=== PATIENT | female | born 1975 | race Caucasian/White ===

== ENCOUNTER 2023-11-27 14:38 | Outpatient (REF) | payer MEDICAID, SELFPAY ==
[2023-12-03 20:13] LABS: C. trachomatis RNA TMA NOT DETECTED (NOT DETECTED); N. gonorrhoeae RNA TMA NOT DETECTED (NOT DETECTED)
[2023-12-04 14:23] LABS: Trichomonas (NAAT) NOT DETECTED (NOT DETECTED)
[2023-12-05 03:29] LABS: HPV 16 RNA NOT DETECTED (NOT DETECTED); HPV mRNA E6/E7 rflx Detected (Not Detected)
== END 2023-11-27 14:39 | disposition home or self-care (01) ==
LOC: HO.CHCLNP 14:38
PROVIDERS: Visit Provider Nurse Practitioner
DX: Z12.4 Encounter for screening for malignant neoplasm of cervix (principal); Z11.51 Encounter for screening for human papillomavirus (HPV); Z11.3 Encounter for screening for infections with a predominantly sexual mode of transmission
CPT/HCPCS: 36415; 87491; 87591; 87624; 87625; 87661; 88142

== ENCOUNTER 2023-12-03 11:08 | Outpatient (REF) | payer MEDICAID, SELFPAY ==
[2023-12-03 14:57] LABS: Anion Gap 11 (12-20); Blood Urea Nitrogen 13 mg/dL (9-16); Carbon Dioxide 26 mmol/L (22-29); Chloride 107 mmol/L (96-108); Cholesterol 111 mg/dL (<200); Estimated Glomerular Filt Rate > 60; Glucose Random 164 mg/dL (60-115); HDL Cholesterol 39 mg/dL (>40); LDL Cholesterol Calculated 58 mg/dL (<100); Sodium 140 mmol/L (135-145); Triglycerides 73 mg/dL (<150)
[2023-12-03 16:04] LABS: Creatinine Urine 96.71 mg/dL; Microalbum/Creatinine Ratio Ur 6.2 ug/mg cr (<30)
== END 2023-12-03 11:09 | disposition home or self-care (01) ==
LOC: HO.CHCLDS 11:08
PROVIDERS: Visit Provider Registered Nurse
DX: E11.9 Type 2 diabetes mellitus without complications (principal)
CPT/HCPCS: 36415; 80048; 80061; 82043; 82570

== ENCOUNTER 2023-12-14 18:54 | Emergency (ER) | payer MEDICAID, SELFPAY ==
--- NOTE | 2023-12-14 19:27 | ED_ITS ---
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 slightly elevated blood pressure 130/90 stressed out looking for answers and treatment Related Data Allergies Allergy/AdvReac Type Severity Reaction Status Date / Time iodine [Iodine] Allergy Unknown ANAPHYLAXIS Unverified 07/08/20 17:54 morphine [MORPHINE] Allergy Unknown HIVES Unverified 07/08/20 17:54 Shellfish Allergy Unknown ANAPHYLAXIS Uncoded 07/08/20 17:54 Review of Systems 2 Review of Systems: Yes all other systems are reviewed and are negative [facility] Social History Social History Advance Directives: No Advance Directives Information Provided: No Physical Exam ED Vital Signs: Vital Signs - 24 hr 12/14/23 19:28 12/14/23 22:45 Temperature 98.3 F 97.1 F Pulse Rate 72 74 Respiratory Rate 16 18 Blood Pressure 135/85 131/90 H Pulse Oximetry 98 98 Oxygen Delivery Method Room Air Room Air BMI result Body Mass Index 38.9 Appearance: Alert. Oriented X3. No acute distress. anxious Eyes: PERRLA, No Nystagmus ENT: Pharynx normal. Oral Mucosa moist Neck: Normal inspection. Neck supple. CVS: Normal heart rate and rhythm. Pulses normal. Respiratory: No respiratory distress. Equal air entry bilateral, no wheezing/rales/rhonchi Abdomen: Soft and nontender. Bowel sounds are present, no mass palpable, no CVA tenderness Skin: Skin warm and dry. Normal skin color. Normal skin turgor. Extremities: No lower extremity edema. No calf tenderness Neuro: Oriented X 3. Course Course Course Narrative: RME:?47 yo female here for eval of dizzy spells, headache, nausea, & 1 episode of vomiting. dizziness worse w/ head movements. described as feeling light headed, as if she is going to pass out. headache located temporally with associated spots in vision that have resolved. took Motrin at home for headache. had appointment w/ PCP today for this but was 5 mins late d/t falling asleep and they would not see her. no recent travel/ long car rides. perrla. exam nonfocal. negative romberg. normotensive in triage labs, viral swabs ordered Full HPI, ROS and PE to be performed by the primary ED provider. 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 12/14/23 19:46 12/14/23 19:46 Labs: Lab Results 12/14/23 Range/Units 19:46 WBC 9.8 (4.8-10.8) X10*3/uL RBC 4.46 (4.20-5.50) X10*6/uL Hgb 11.9 L (12.0-16.0) g/dl Hct 38.5 (37.0-47.0) % MCV 86.3 (80.0-98.0) fL MCH 26.7 L (27.0-33.0) pg MCHC 30.9 L (31.0-35.0) g/dl RDW 15.1 (11.0-16.0) % Plt Count 357 (160-400) X10*3/uL MPV 11.1 (9.4-12.3) fL Immature Gran % (Auto) 0.3 (0.0-0.4) % Neut % (Auto) 62.0 (45-73) % Lymph % (Auto) 29.9 (20-40) % [place] % (Auto) 5.6 (2-11) % Eos % (Auto) 1.6 (0-4) % Baso % (Auto) 0.6 (0-2) % Lymph # (Auto) 2.9 (1.2-4.9) X10*3/uL [place] # (Auto) 0.6 (0.1-1.2) X10*3/uL Eos # (Auto) 0.2 (0.0-0.4) X10*3/uL Baso # (Auto) 0.1 (0.0-0.2) X10*3/uL Abs Immat Gran (auto) 0.03 (0.00-0.03) X10*3/uL Absolute Neuts (auto) 6.0 (2.0-8.3) x10*3/uL Absolute Nucleated RBC 0.000 (0.0-0.012) X10*3/uL Nucleated RBC % (auto) 0.0 (0.0-0.2) /100WBC PT 12.3 (11.1-13.3) SEC INR 1.0 (0.9-1.1) Sodium 143 (135-145) mmol/L Potassium 4.3 (3.3-5.1) mmol/L Chloride 106 (96-108) mmol/L Carbon Dioxide 27 (22-29) mmol/L Anion Gap 14 (12-20) BUN 22 H (9-16) mg/dL Creatinine 0.81 (0.5-1.4) mg/dL Estim Creat Clear Calc 96.6 Estimated GFR > 60 Random Glucose 211 H (60-115) mg/dL Calcium 9.4 (8.4-10.2) mg/dL Magnesium 2.3 (1.6-2.6) mg/dL Total Bilirubin 0.5 (0.0-1.0) mg/dL AST 25 (5-31) U/L ALT 32 H (0-31) U/L Alkaline Phosphatase 164 H (39-117) U/L Total Protein 7.5 (6.5-8.0) g/dL Albumin 4.1 (3.5-5.0) g/dL Influenza Type A (PCR) NEGATIVE (Negative) Influenza Type B (PCR) NEGATIVE (Negative) RSV RNA Qual (PCR) NEGATIVE (Negative) SARS-CoV-2 RNA (RT-PCR) NEGATIVE (Negative) Discharge Plan Discharge Clinical Impression: HPV in female Patient Disposition: Home, Self-Care Instructions: Cervical Cone Biopsy (DC) Additional Instructions: Follow-up with gynecology for further evaluation and management Referrals: Adeel Rodriguez MD [Physician] - 1 week
[2023-12-14 19:28] VITALS: BP 135/85; PULSE 72; RESP 16; TEMP 36.8; O2SAT 98; BMI 38.9
--- NOTE | 2023-12-14 19:48 | MHC.EDTECH ---
Patient brought into triage area,labs,and a Sars/flu/covid,obtained and sent to lab
[2023-12-14 19:52] LABS: MANUAL DIFF FLAG NO
[2023-12-14 19:54] LABS: Basophils Absolute Auto 0.1 X10*3/uL (0.0-0.2); Basophils Percent Auto 0.6 % (0-2); Eosinophils Absolute Auto 0.2 X10*3/uL (0.0-0.4); Eosinophils Percent Auto 1.6 % (0-4); Hematocrit 38.5 % (37.0-47.0); Hemoglobin 11.9 g/dl (12.0-16.0); Imm Gran Abs Auto 0.03 X10*3/uL (0.00-0.03); Imm Gran Pct Auto 0.3 % (0.0-0.4); Lymphocytes Absolute Auto 2.9 X10*3/uL (1.2-4.9); Lymphocytes Percent Auto 29.9 % (20-40); Mean Corpuscular HGB Conc 30.9 g/dl (31.0-35.0); Mean Corpuscular Hemoglobin 26.7 pg (27.0-33.0); Mean Corpuscular Volume 86.3 fL (80.0-98.0); Mean Platelet Volume 11.1 fL (9.4-12.3); Monocytes Absolute Auto 0.6 X10*3/uL (0.1-1.2); Monocytes Percent Auto 5.6 % (2-11); Platelet Count 357 X10*3/uL (160-400); Red Blood Count 4.46 X10*6/uL (4.20-5.50); Red Cell Distribution Width 15.1 % (11.0-16.0); White Blood Count 9.8 X10*3/uL (4.8-10.8)
[2023-12-14 19:59] LABS: Prothrombin Time 12.3 SEC (11.1-13.3)
[2023-12-14 20:11] LABS: Alanine Aminotransferase 32 U/L (0-31); Albumin Level 4.1 g/dL (3.5-5.0); Alkaline Phosphatase 164 U/L (39-117); Anion Gap 14 (12-20); Aspartate Amino Transferase 25 U/L (5-31); Bilirubin Total 0.5 mg/dL (0.0-1.0); Blood Urea Nitrogen 22 mg/dL (9-16); Calcium 9.4 mg/dL (8.4-10.2); Carbon Dioxide 27 mmol/L (22-29); Chloride 106 mmol/L (96-108); Creatinine Clr Calc Pharmacy 96.6; Estimated Glomerular Filt Rate > 60; Glucose Random 211 mg/dL (60-115); Magnesium 2.3 mg/dL (1.6-2.6); Potassium 4.3 mmol/L (3.3-5.1); Sodium 143 mmol/L (135-145); Total Protein 7.5 g/dL (6.5-8.0)
[2023-12-14 20:30] LABS: Influenza A PCR NEGATIVE (Negative); Influenza B PCR NEGATIVE (Negative); Resp Syncy Virus RNA Qual PCR NEGATIVE (Negative); SARS COV2 PCR INHOUSE NEGATIVE (Negative)
[2023-12-14 22:45] VITALS: BP 131/90; PULSE 74; RESP 18; TEMP 36.2; O2SAT 98
[2023-12-15 00:43] VITALS: PULSE 60; RESP 18; O2SAT 99
[2023-12-15 01:03] VITALS: BP 138/93
== END 2023-12-15 01:10 | disposition home or self-care (01) ==
PROVIDERS: Physician Assistant Medical; Emergency Provider Internal Medicine
DX: A63.0 Anogenital (venereal) warts (principal); R42 Dizziness and giddiness; R51.9 Headache, unspecified; R11.2 Nausea with vomiting, unspecified; Z11.52 Encounter for screening for COVID-19; Z20.828 Contact with and (suspected) exposure to other viral communicable diseases
CPT/HCPCS: 0241U; 36415; 80053; 83735; 85025; 85610; 99283

== ENCOUNTER 2023-12-20 14:15 | Outpatient (REF) | payer MEDICAID, SELFPAY | END 2023-12-20 14:16 | disposition home or self-care (01) | LOC: HO.LNP 14:15 | PROVIDERS: PCP Registered Nurse; Visit Provider Obstetrics & Gynecology | DX: R87.610 Atypical squamous cells of undetermined significance on cytologic smear of cervix (ASC-US) (principal); R87.810 Cervical high risk human papillomavirus (HPV) DNA test positive | CPT/HCPCS: 57454; 88305; 88342; 88360 ==

== ENCOUNTER 2023-12-20 14:15 | Outpatient (AMB) | payer MEDICAID, SELFPAY ==
[2023-12-20 14:29] VITALS: BP 130/78; BMI 38.7
--- NOTE | 2023-12-20 14:29 | MHC.OFFVIS ---
Intake Vital Signs 12/20/23 14:29 Height 5 ft 3 in Weight 218 lb 4.122 oz BMI 38.7 BP 130/78 Intake Visit Reasons: ER follow Up/ colpo Communications Intern Required: No Information Interpreted: non-clinical & clinical Accompanied by: Self / Same As Patient Allergies iodine [Iodine] Allergy (Unknown, Unverified 12/20/23 14:34) ANAPHYLAXIS morphine [MORPHINE] Allergy (Unknown, Unverified 12/20/23 14:34) HIVES Shellfish Allergy (Unknown, Uncoded 12/20/23 14:34) ANAPHYLAXIS Is last menstrual period known: Yes HPI HPI Comments History of Present Illness Details Presenting for colposcopy Pap smear done in 12/15 showed ascus/HPV E6 E7 positive, HPV 16/18/45 negative PFSH Medical History Diabetes HTN (hypertension) Surgical History Hx of tubal ligation Hx of cholecystectomy Hx of hernia repair Hx of section Family History Father HTN (hypertension) Kidney failure Diabetes Mother HTN (hypertension) Brother HTN (hypertension) Social History Household Members: Children Housing: Apartment Alcohol intake: former Patient Tobacco Use Status: Never used Tobacco Current occupational status: unemployed Sexually active: No Sexual orientation: Straight/Heterosexual Gender identity: Female Female Reproductive History Menstrual control method: permanent sterilization Date of last pap smear: 11/27/23 History of abnormal pap smear: Yes (Ascus ,HPV +) Review of Systems Const All systems reviewed & are unremarkable except as noted in HPI and below Physical Exam Vital Signs: Last Vital Signs BP 130/78 12/20/23 14:29 BMI result Body Mass Index 38.7 General: Yes no CVA tenderness External Female Exam: normal external appearance and normal appearance of the urethra Speculum Exam - Vagina: normal appearance of the vagina, normal palpation, no lesions and no masses Speculum Exam - Cervix: normal appearance of the cervix, normal palpation, no lesions, no masses and nontender Bimanual exam- vagina & uterus: normal bimanual exam, normal palpation, uterine size normal, normal palpation, uterine shape normal, No Cervical tenderness present and non-tender Bimanual Exam- Adnexa, other: normal adnexae Back/Spine/Pelvis Back: no CVA tenderness Office Procedures Colposcopy Before the procedure was started discussed with the patient the procedure, alternatives & all the risks associated with the procedure (bleeding, infection, injury to vagina, bladder, vessels, possible need for transfusion with all its risks) then patient signed the consent UPT done in the office & negative Pap smear = ascus/HPV E6/E7 positive HPV 16/18/40 5- Speculum inserted, acetic acid used Colposcopy done Transformation zone seen, acetowhite lesions identified at 6+12 o?clock, cervical biopsies taken from 6+1 o?clock, ECC done afterwards. Vaginoscopy of the upper vagina showed no evidence of any aceto-white lesions Monsel solution used for hemostasis. The patient tolerated well . At the end the patient was instructed to call if temp>100.4, abdominal pain, n/v, bleeding; The patient was given the following instructions: nothing per vagina, no intercourse or bath tub use. All questions answered the patient verbalized understanding. Instructed the patient to make an appointment in 2 weeks for follow-up This note was generated with a voice recognition program. Some errors may have been overlooked during the review of this note. Sometimes these errors may affect the content or meaning of a given sentence. 25028-[id number] of cervix including upper vagina with biopsy and ECC Procedure code (CPT) selection complete Assessment & Plan Assessment & Plan (1) ASCUS with positive high risk HPV cervical: Code(s): R87.610 - Atypical squamous cells of undetermined significance on cytologic smear of cervix (ASC-US); R87.810 - Cervical high risk human papillomavirus (HPV) DNA test positive Plan: Discussed with the patient the result of her abnormal pap, its significance, risk of progression, persistence, and regression. the false positive/negative rate of a Pap smear as a screening test in detecting cervical cancer and the indication for a diagnostic test -colposcopy, biopsy, endocervical curettage. The patient verbalized understanding and agreed with the plan, all questions answered. Orders: Orders AMB Colposcopy Today R87.610 - Atypical squamous cells of undetermined significance on cytologic smear of cervix (ASC-US), R87.810 - Cervical high risk human papillomavirus (HPV) DNA test positive Coding Level of Care Code Procedure Only Diagnoses ASCUS with positive high risk HPV cervical R87.610; R87.810 CPT Codes Colposcopy - CPT: 00408-Kkmyboake of cervix including upper vagina with biopsy and ECC ([id number])
== END 2023-12-20 15:26 | disposition home or self-care (01) ==
PROVIDERS: PCP Registered Nurse; Visit Provider Obstetrics & Gynecology
DX: R87.610 Atypical squamous cells of undetermined significance on cytologic smear of cervix (ASC-US) (principal); R87.810 Cervical high risk human papillomavirus (HPV) DNA test positive
CPT/HCPCS: 57454

== ENCOUNTER 2023-12-28 15:48 | Outpatient (REF) | payer MEDICAID, SELFPAY ==
[2023-12-29 00:24] LABS: Vitamin B12 452 pg/mL (200-900)
[2023-12-29 01:37] LABS: Folate 12.7 ng/mL (> or = 4.0)
[2023-12-29 04:12] LABS: HIV AB/AG Nonreactive (Nonreactive); HIV Num 1 0.05 S/CO (0.00-0.99)
[2023-12-31 08:14] LABS: RPR Rapid Plasma Reagin NON-REACTIVE (NON-REACTIVE)
[2023-12-31 13:38] LABS: HCV Log PCR <1.18 NOT DETECTED Log IU/mL (NOT DETECTED); HepC Viral Load <15 NOT DETECTED IU/mL (NOT DETECTED)
== END 2023-12-28 15:49 | disposition home or self-care (01) ==
LOC: HO.CHCLDS 15:48
PROVIDERS: Referring Provider Internal Medicine; Visit Provider Registered Nurse
DX: D64.9 Anemia, unspecified (principal); Z11.3 Encounter for screening for infections with a predominantly sexual mode of transmission
CPT/HCPCS: 36415; 82607; 82746; 86592; 87389; 87522

== ENCOUNTER 2023-12-31 14:08 | Outpatient (AMB) | payer MEDICAID, SELFPAY ==
--- NOTE | 2023-12-31 14:08 | A.OFFVIS_ITS ---
Intake Intake Visit Reasons: Colpo Results Public Works Technician Required: No Information Interpreted: non-clinical & clinical Allergies iodine [Iodine] Allergy (Unknown, Unverified 12/31/23 14:08) ANAPHYLAXIS morphine [MORPHINE] Allergy (Unknown, Unverified 12/31/23 14:08) HIVES Shellfish Allergy (Unknown, Uncoded 12/31/23 14:08) ANAPHYLAXIS HPI HPI Comments History of Present Illness Details The patient is scheduled tele health visit post colpo for follow-up. The patient is doing well with no complaints. The pathology showed the following: A. Endocervix, curettage: Endocervical glandular and squamous mucosa with reactive changes; negative for dysplasia. B. Cervix, 6:00, biopsy: Squamous mucosa with marked inflammation and reactive changes; negative for dysplasia; no endocervical glandular mucosa present. C. Cervix, 12:00, biopsy: Squamous mucosa; negative for dysplasia; no endocervical glandular mucosa present. Comment: The patient's previous Pap test ([id number]) is reviewed and the rare atypical cells in the Pap may represent reactive changes PFSH Medical History Diabetes HTN (hypertension) Surgical History Hx of tubal ligation Hx of cholecystectomy Hx of hernia repair Hx of section Family History Father HTN (hypertension) Kidney failure Diabetes Mother HTN (hypertension) Brother HTN (hypertension) Social History Household Members: Children Housing: Apartment Alcohol intake: former Patient Tobacco Use Status: Never used Tobacco Current occupational status: unemployed Sexual orientation: Straight/Heterosexual Gender identity: Female Review of Systems Const All systems reviewed & are unremarkable except as noted in HPI and below Reports as per HPI and Reports no additional complaints GI Reports no additional complaints Reports no additional complaints Assessment & Plan Assessment & Plan (1) ASCUS with positive high risk HPV cervical: Code(s): R87.610 - Atypical squamous cells of undetermined significance on cytologic smear of cervix (ASC-US); R87.810 - Cervical high risk human papillomavirus (HPV) DNA test positive Plan: Discussed with the patient the pathology results of the colposcopy biopsies & endocervical curettage ( negative). Discussed with the patient the sensitivity specificity, positive and negative predictive value in detecting cervical cancer in addition discussed the regression, persistence and progression rates. Recommended co-testing in 12 months, if cytology and or HPV are abnormal will proceed was colposcopy biopsy and endocervical curettage. Instructions given to the patient to schedule a co test appointment in 1 year. All questions answered the patient verbalized understanding. I spent a total of 20 minutes reviewing the chart, talking to the patient via video and documenting in the medical record. Telehealth Telehealth Location of provider rendering services: practice address Location of patient: address on file Patient Identification confirmed using: Name, : Yes Telehealth method: video Patient verbally consented to treatment: Yes Patient verbally consented to billing insurance company: Yes Patient informed of any privacy concerns related to visit: Yes Coding Level of Care Code Tele Est Pt Level 1 (05690) Diagnoses ASCUS with positive high risk HPV cervical R87.610; R87.810
== END 2023-12-31 16:24 | disposition home or self-care (01) ==
LOC: HO.HWS 14:08
PROVIDERS: PCP Registered Nurse; Visit Provider Obstetrics & Gynecology
DX: R87.610 Atypical squamous cells of undetermined significance on cytologic smear of cervix (ASC-US) (principal); R87.810 Cervical high risk human papillomavirus (HPV) DNA test positive
CPT/HCPCS: 99211

== ENCOUNTER → 2023-12-31 14:08 | Outpatient (BNVA) | payer MEDICAID, SELFPAY | PROVIDERS: PCP Registered Nurse; Visit Provider Obstetrics & Gynecology ==

== ENCOUNTER 2024-03-10 15:19 | Outpatient (REF) | payer MEDICAID, SELFPAY ==
[2024-03-10 18:50] LABS: Influenza A PCR NEGATIVE (Negative); Influenza B PCR NEGATIVE (Negative); Resp Syncy Virus RNA Qual PCR NEGATIVE (Negative); SARS COV2 PCR INHOUSE NEGATIVE (Negative)
== END 2024-03-10 15:20 | disposition home or self-care (01) ==
LOC: HO.CHCLNP 15:19
PROVIDERS: Visit Provider Registered Nurse
DX: B34.9 Viral infection, unspecified (principal)
CPT/HCPCS: 0241U

== ENCOUNTER 2024-05-21 18:03 | Outpatient (REF) | payer MEDICAID, SELFPAY ==
[2024-05-22 04:09] LABS: CT PCR NOT DETECTED (Not Detect.); NG PCR NOT DETECTED (Not Detect.)
== END 2024-05-21 18:04 | disposition home or self-care (01) ==
LOC: HO.HHCLNP 18:03
PROVIDERS: Visit Provider Advanced Practice Midwife
DX: R39.9 Unspecified symptoms and signs involving the genitourinary system (principal); Z11.3 Encounter for screening for infections with a predominantly sexual mode of transmission
CPT/HCPCS: 87086; 87491; 87591

== ENCOUNTER 2024-07-11 11:52 | Outpatient (REF) | payer MEDICAID, SELFPAY ==
[2024-07-12 03:09] LABS: CT PCR NOT DETECTED (Not Detect.); NG PCR NOT DETECTED (Not Detect.)
[2024-07-12 08:48] LABS: Bacterial Vaginosis PCR POSITIVE (Negative); Candida Group PCR NOT DETECTED (Not Detect); Candida glab krusei PCR NOT DETECTED (Not Detect); Trichomonas vaginalis PCR NOT DETECTED (Not Detect)
== END 2024-07-11 11:53 | disposition home or self-care (01) ==
LOC: HO.CHCLNP 11:52
PROVIDERS: Visit Provider Registered Nurse
DX: Z11.3 Encounter for screening for infections with a predominantly sexual mode of transmission (principal)
CPT/HCPCS: 0352U; 87255; 87491; 87591

== ENCOUNTER 2024-10-30 10:22 | Outpatient (REF) | payer MEDICAID, SELFPAY | END 2024-10-30 10:23 | disposition home or self-care (01) | LOC: HO.HHCL 10:22 | PROVIDERS: Visit Provider Advanced Practice Midwife | DX: Z13.89 Encounter for screening for other disorder (principal) ==

== ENCOUNTER 2024-10-30 16:47 | Outpatient (REF) | payer MEDICAID, SELFPAY ==
[2024-10-30 12:47] LABS: Syphilis Screen Nonreactive (Nonreactive)
[2024-10-30 12:50] LABS: HBS Num1 46.33 mIU/mL (0-7.99); HBc Num1 0.17 S/CO (0.00-0.79); HBsAGNum1 0.34 S/CO (0.00-0.99); HIV AB/AG Nonreactive (Nonreactive); Hepatitis B Core Antibody Nonreactive (Nonreactive); Hepatitis B Surface Antigen Negative (Negative); ~Hepatitis B Surface Antibody REACTIVE (Nonreactive)
[2024-10-30 12:58] LABS: HBS Num1 46.76 mIU/mL (0-7.99); HBc Num1 0.17 S/CO (0.00-0.79); HBsAGNum1 0.39 S/CO (0.00-0.99); HIV AB/AG Nonreactive (Nonreactive); HIV Num 1 0.06 S/CO (0.00-0.99); Hepatitis B Core Antibody Nonreactive (Nonreactive); Hepatitis B Surface Antigen Negative (Negative); ~Hepatitis B Surface Antibody REACTIVE (Nonreactive)
[2024-10-31 09:11] LABS: HPV 16,18/45 See PAP report
[2024-11-02 07:59] LABS: RPR Rapid Plasma Reagin NON-REACTIVE (NON-REACTIVE)
[2024-11-02 13:18] LABS: HCV Log PCR <1.18 NOT DETECTED Log IU/mL (NOT DETECTED); HepC Viral Load <15 NOT DETECTED IU/mL (NOT DETECTED)
[2024-11-03 15:19] LABS: C. trachomatis RNA TMA NOT DETECTED (NOT DETECTED); N. gonorrhoeae RNA TMA NOT DETECTED (NOT DETECTED); Trichomonas (NAAT) NOT DETECTED (NOT DETECTED)
== END 2024-10-30 16:48 | disposition home or self-care (01) ==
LOC: HO.HHCLNP 16:47
PROVIDERS: Registered Nurse; Visit Provider Advanced Practice Midwife
DX: Z11.3 Encounter for screening for infections with a predominantly sexual mode of transmission (principal); E11.51 Type 2 diabetes mellitus with diabetic peripheral angiopathy without gangrene; Z12.4 Encounter for screening for malignant neoplasm of cervix; Z87.42 Personal history of other diseases of the female genital tract
CPT/HCPCS: 86592; 86704; 86706; 86780; 87340; 87389; 87491; 87522; 87591; 87626; 87661; 88175

== ENCOUNTER 2024-12-12 11:34 | Outpatient (REF) | payer MEDICAID, SELFPAY ==
--- OUTSIDE RECORDS SUMMARY | 2024-12-12 12:37 | XMS_ITS | Encounter Summary ---
Author Organization [email or web address] Address [address] [facility] [address] [place] [address] Care Team Providers Care Emergency Room Tech Name Role Phone Lisa Ceballos Primary Care Provider [phone] Jose Albarado Unavailable Unavailable Reason for Visit * Reason Comments Med Refill Encounter Details Date Type Department Care Team ([facility] Contact Info) Description 08/20/2023 Refill [facility] [address] [place] [address] Lisa Ceballos FNP [address] [place] [address] Type 2 diabetes mellitus without complication, without long-term current use of insulin ([facility]) Social History Tobacco Use Types Packs/Day Years Used Date Smoking Tobacco: Never Passive Smoke Exposure: Never Smokeless Tobacco: Never Alcohol Use Standard Drinks/Week Comments Never 0 (1 standard drink = 0.6 oz pur e alcohol) Depression Answer Date Recorded Patient Health Questionnaire-9 Score 8 02/19/2023 Housing Stability Answer Date Recorded What is your housing situation today? I do not have housing (Staying with others, in a hotel, in a [place], living outside on the street, on a beach, in a car, or in a park 07/30/[address] you li ve. Do you have problems with any of the following? Pests such as bugs, ants, or mice 07/30/2023 Food Insecurity Answer Date Recorded Within the past 12 months, y ou worried that your food would run out before you got money to buy more: Never True 08/16/2023 Within the past 12 months,th e food you bought just didn't last and you didn't have enough money to get more: Never True Transportation Answer Date Recorded In the past 12 months, has l ack of transportation kept you from medical appts, meetings, work or from getting things needed for daily living? Yes, it has kept me from medical appointments or getting medications.;Yes, it has kept me from non-medical meetings, work, or getting things that I need 07/30/2023 Utilities Answer Date Recorded In the past 12 months, has t he electric, gas, oil or water company threatened to shut off services in your home? No 08/16/2023 Depression Answer Date Recorded Patient Health Questionnaire-2 Score 2 02/19/2023 Comments Unknown Sex and Gender Information Value Date Recorded Sex Assigned at Female 10/19/2022 9:36 AM EST Legal Sex Female 9:19 AM EST Gender Identity Female 10/19/2022 9:36 AM EST Sexual Orientation Straight 04/10/2023 10 :37 AM EDT documented as of this encounter Plan of Treatment Upcoming Encounters Date Type Department Care Team (Late st Contact Info) Description 12/15/2024 10:00 AM EST Clinical Support [facility] [address] [place] [address] documented as of this encounter Visit Diagnoses Diagnosis Type 2 diabetes mellitus without complication, without long-term current use of insulin ([facility]) documented in this encounter Additional Health Concerns Assessment Noted Time PHQ-9 Depression Total Score: 8 02/20/20 23 2:09 PM EDT documented as of this encounter Care Teams Emergency Room Tech Relationship Specialty Start Date End Date Lisa Ceballos FNP [address] [place] [id number] PCP - General Family Medicine 10/19/22 Jose Albarado Community Health Worker 05/22/24 Loi Fitzpatrick Honey ExtractorMat Inspector 11/19/24 documented as of this encounter
--- OUTSIDE RECORDS SUMMARY | 2024-12-12 12:37 | XMS_ITS | Encounter Summary ---
Author Organization [employer] Address [address] [facility] 7t [place] [address] Care Team Providers Care Packing Attendant Name Role Phone Lisa Ceballos CODING CLERKS SUPERVISOR Primary Care Provider [phone] Jose Albarado Unavailable Unavailable Encounter Details Date Type Department Care Team ([facility] Contact Info) Description 11/03/2022 Orders Only [facility] MEDICINE [address] [place], [place] [phone] Eric Ramos MD [address] [place] [address] Type 2 diabetes mellitus without complication, without long-term current use of insulin ([facility]) (Primary Dx) Social History Tobacco Use Types Packs/Day Years Used Date Smoking Tobacco: Never Smokeless Tobacco: Never Comments Unknown Sex and Gender Information Value Date Recorded Sex Assigned at Female 10/19/2022 9:36 AM EST Legal Sex Female 9:19 AM EST Gender Identity Female 10/19/2022 9:36 AM EST Sexual Orientation Straight 04/10/2023 10 :37 AM EDT COVID-19 Exposure Response Date Recorded In the last 10 days, have yo u been in contact with someone who was confirmed or suspected to have Coronavirus/COVID-19? No / Unsure 11/03/2022 10:31 AM EST documented as of this encounter Plan of Treatment Upcoming Encounters Date Type Department Care Team ([facility] Contact Info) Description 12/15/2024 10:00 AM EST Clinical Support [facility] CHC MED & PEDS [address] [place], [place] [phone] documented as of this encounter Procedures Procedure Name Priority Date/Time Associated Diagnosis Comments CBC WITH AUTO DIFFERENTIAL Routine 11/03/2022 12:07 PM EST Type 2 diabetes mellitus without complication, without long-term current use of insulin (CMS/HCC) LIPID PANEL, STANDARD Routine 11/03/2022 12:07 PM EST Type 2 diabetes mellitus without complication, without long-term current use of insulin (CMS/HCC) BASIC METABOLIC PANEL Routine 11/03/2022 12:07 PM EST Type 2 diabetes mellitus without complication, without long-term current use of insulin (CMS/HCC) documented in this encounter Results * (ABNORMAL) Lipid Panel, Standard (11/03/2022 12:07 PM EST) [facility] Cholesterol, Total 99 <200 mg/dL [facility] HDL Cholesterol 35(L) > OR = 50 mg/dL [facility] Triglycerides 75 <150 mg/dL [facility] LDL Cholesterol 48 mg/dL (calc) [facility] Comment: Reference range: <100 Desirable range <100 mg/dL for primary prevention; ?? <70 mg/dL for patients with CHD or diabetic patients with > or = 2 CHD risk factors. LDL-C is now calculated using the Malick-Rogelio calculation, which is a validated novel method providing better accuracy than the Friedewald equation in the estimation of LDL-C. Malick ROYAL et al. YAYO. 2013;310(19): 7560-8176 (http://education.COADE/faq/LBG595) Chol/HDLC Ratio 2.8 <5.0 (calc) [facility] Non-HDL Cholesterol 64 <130 mg/dL (calc) [facility] Comment: For patients with diabetes plus 1 major ASCVD risk factor, treating to a non-HDL-C goal of <100 mg/dL (LDL-C of <70 mg/dL) is considered a therapeutic option. Blood Venous blood specimen / Unknown 11/03/2022 12:07 PM EST 11/03/2022 12:07 PM EST Narrative [facility] - 11/04/2022 4:26 AM EST FASTING:YES FASTING: YES Eric Ramos MD LAB BLOOD ORDERABLES Final Resul t [facility] [address] [facility], [facility], [place] [address] [facility] [address], ([address]) [place] [address] * (ABNORMAL) Basic metabolic panel (11/03/2022 12:07 PM EST) Glucose 187(H) 65 - 99 mg/dL [facility] Comment: ? Fasting reference interval For someone without known diabetes, a glucose value >125 mg/dL indicates that they may have diabetes and this should be confirmed with a follow-up test. Urea Nitrogen (BUN) 19 7 - 25 mg/dL [facility] Creatinine, Serum 0.72 0.50 - 0.99 mg/dL [facility] eGFR 104 > OR = 60 mL/min/1 .73m2 [facility] Comment: The eGFR is based on the CKD-EPI 2020 equation. To calculate the new eGFR from a previous Creatinine or Cystatin C result, go to https://www.kidney.org/professionals/ kdoqi/gfr%5Fcalculator BUN/Creatinine Ratio NOT APPLICABLE 6 - 22 (calc) [facility] Sodium 138 135 - 146 mmol/L [facility] Potassium 4.3 3.5 - 5.3 mmol/L [facility] Chloride 104 98 - 110 mmol/L [facility] Carbon Dioxide 29 20 - 32 mmol/L [facility] Calcium 8.5(L) 8.6 - 10.2 mg/dL [facility] Blood Venous blood specimen / Unknown 11/03/2022 12:07 PM EST 11/03/2022 12:07 PM EST Narrative [facility] - 11/04/2022 4:26 AM EST FASTING:YES FASTING: YES Eric Ramos MD LAB BLOOD ORDERABLES Final Resul t [facility] [address] [facility], [place] [address] [facility] [address] [facility], ([address]) [place] [address] * (ABNORMAL) CBC auto differential (11/03/2022 12:07 PM EST) White Blood Cell Count 8.5 3.8 - 10.8 Thousand/ uL [facility] Red Blood Cell Count 4.41 3.80 - 5.10 Million/u L [facility] Hemoglobin 10.2(L) 11.7 - 15.5 g/dL [facility] Hematocrit 34.7(L) 35.0 - 45.0 % [facility] MCV 78.7(L) 80.0 - 100.0 fL [facility] MCH 23.1(L) 27.0 - 33.0 pg [facility] MCHC 29.4(L) 32.0 - 36.0 g/dL [facility] RDW 15.4(H) 11.0 - 15.0 % [facility] Platelet Count 488(H) 140 - 400 Thousand/ uL [facility] MPV 11.4 7.5 - 12.5 fL [facility] Absolute Neutrophils 4,930 1,500 - 7,800 cells/uL [facility] Absolute Lymphocytes 2,686 850 - 3,900 cells/uL [facility] Absolute Monocytes 468 200 - 950 cells/uL [facility] Absolute Eosinophils 349 15 - 500 cells/uL [facility] Absolute Basophils 68 0 - 200 cells/uL [facility] Neutrophils 58 % [facility] Lymphocytes 31.6 % [facility] Monocytes 5.5 % [facility] [place] [facility] Eosinophils 4.1 % [facility] Basophils 0.8 % [facility] Blood Venous blood specimen / Unknown 11/03/2022 12:07 PM EST 11/03/2022 12:07 PM EST Narrative [facility] - 11/04/2022 4:26 AM EST FASTING:YES FASTING: YES us Eric Ramos MD LAB BLOOD ORDERABLES Final Resul t [facility] [address], [place] [address] [facility] [address] [facility], ([address]) [place] [address] documented in this encounter Visit Diagnoses Diagnosis Type 2 diabetes mellitus without complication, without long-term current use of insulin (CMS/[facility])- Primary documented in this encounter Care Teams Packing Attendant Relationship Specialty Start Date End Date Lisa Ceballos FNP [address] [place] [address] PCP - General Family Medicine 10/19/22 Jose Albarado Community Health Worker 05/22/24 Loi Fitzpatrick [employer] Area Manager 11/19/24 documented as of this encounter
--- OUTSIDE RECORDS SUMMARY | 2024-12-12 12:37 | XMS_ITS | Clinical Summary ---
Author Organization [facility] Address [address] [place] [address] Care Team Providers Care Material Control Manager Name Role Phone Pcp, No Primary Care Provider Unavailabl e Allergies Active Allergy Reactions Criticality Noted Date Comments Iodinated Contrast Media Unknown/Patient and Family Unable to Define Medium 05/24/2020 Morphine Rash/Dermatitis Low 05/24/2020 Medications No known medications Encounters Date Type Department Care Team Description 12/02/2024 Scanned Document [facility] Department of Physiatry [place] [address] [place] [phone] Luda Nielson MD 12/02/2024 Scanned Document [facility] [address] [place] [address] Luda Nielson MD 12/01/2024 Scanned Document [facility] [address] [place] [phone] Luda Nielson MD from Last 3 Months Social History Tobacco Use Types Packs/Day Years Used Date Smoking Tobacco: Never Assessed Sex and Gender Information Value Date Recorded Sex Assigned at Not on file Gender Identity Not on file Sexual Orientation Not on file Last Filed Vital Signs Vital Sign Reading Time Taken Comments Blood Pressure 143/90 05/24/2020 1:59 PM EDT Pulse 79 05/24/2020 1:59 PM EDT Temperature 36.8 ??C (98.2 ??F) 05/24/2020 1:59 PM ED T Respiratory Rate 18 05/24/2020 1:59 PM EDT Oxygen Saturation 99% 05/24/2020 1:59 PM EDT Inhaled Oxygen Concentration - - Weight - - Height - - Body Mass Index - - Plan of Treatment Upcoming Encounters Date Type Department Care Team (Late st Contact Info) Description 12/22/2024 2:15 PM EST Procedure visit [facility] Department of Physiatry [place] [address] [place] [phone] Luda Nielson MD [address] [place] [address] Health Maintenance Due Date Last Done Comments Hepatitis C Virus Screening 1975 DTaP/Tdap/Td Vaccines (1 - Tdap) 12/30/1994 Hepatitis B Vaccines (1 of 3 - 19+ 3-dose series) 12/30/1994 Pap Smear (Ages 21-65) 12/30/1996 Mammogram 2015 Colonoscopy 12/30/2020 Influenza Vaccine 05/22/2024 COVID-19 Vaccine ( - 2023-2 5 season) 2024 HIV Screening Completed 12/28/2023 Pneumococcal Vaccine: Pediat esteban (0-5 Years) and At-Risk Patients (6 to 49 Years) Aged Out No longer eligible b ased on patient's age to complete this topic Care Teams Material Control Manager Relationship Specialty Start Date End Date Pcp, No PCP - General General Medicine 05/24/20
--- OUTSIDE RECORDS SUMMARY | 2024-12-12 12:38 | XMS_ITS | Encounter Summary ---
Author Organization [employer] Address [address] [facility] 7t [place] [address] Care Team Providers Care Computer Technical Specialist Name Role Phone Lisa Ceballos FREELANCE RECRUITER Primary Care Provider [phone] Jose Albarado Unavailable Unavailable Reason for Visit * Reason Comments Med Refill Encounter Details Date Type Department Care Team ([facility] Contact Info) Description 11/28/2022 Refill [facility] WALK-IN CENTER [address] [place], [place] [phone] Eric Ramos MD [address] [place] [address] Low back pain associated with a spinal disorder other than radiculopathy or spinal stenosis Social History Tobacco Use Types Packs/Day Years [...] suspected to have Coronavirus/COVID-19? No / Unsure 11/23/2022 9:33 AM EST documented as of this encounter Plan of Treatment Upcoming Encounters Date Type Department Care Team (Late Contact Info) Description 12/15/2024 10:00 AM EST Clinical Support [facility] CHC MED & PEDS [address] [place], [place] [phone] documented as of this encounter Visit Diagnoses Diagnosis Low back pain associated with a spinal disorder other than radiculopathy or spinal stenosis documented in this encounter Care Teams Computer Technical Specialist Relationship Specialty Start Date End Date Lisa Ceballos FNP [address] [place] [address] PCP - General Family Medicine 10/19/22 Jose Albarado Community Health Worker 05/22/24 Loi Fitzpatrick Golf Course StarterAuto Body Repairman 11/19/24 documented as of this encounter
--- OUTSIDE RECORDS SUMMARY | 2024-12-12 12:38 | XMS_ITS | Encounter Summary ---
Author Organization [employer] Address [address] [facility] 7t [place] [address] Care Team Providers Care Flea Market Seller Name Role Phone Lisa Ceballos Primary Care Provider [phone] Jose Albarado Unavailable Unavailable Reason for Visit * Reason Onset Date Comments chart prep 12/11/2024 Encounter Details Date Type Department Care Team ([facility] Contact Info) Description 12/11/[address] [facility] CHC MED & PEDS [address] [place], [place] [phone] Lisa Ceballos FNP [address] [place] [address] chart prep Social History Tobacco Use Types Packs/Day Years Used Date Smoking Tobacco: Never Passive Smoke Exposure: Never Smokeless Tobacco: Never Alcohol Use Standard Drinks/Week Comments Never 0 (1 standard drink = 0.6 oz pur e alcohol) Depression Answer Date Recorded Patient Health Questionnaire-9 Score 4 12/12/2024 Patient Health Questionnaire-9 Score 4 12/12/2024 Last PHQ-9: Questionnaire Data Not on file 0 12/12/2024 Housing Stability Answer Date Recorded What is your housing situation today? I have alysia gonzalez 01/07/[address] you li ve. Do you have problems with any of the following? None of the above 01/07/2024 Food Insecurity Answer Date Recorded Within the past 12 months, y ou worried that your food would run out before you got money to buy more: Never True 01/07/2024 Within the past 12 months,th e food you bought just didn't last and you didn't have enough money to get more: Never True Transportation Answer Date Recorded In the past 12 months, has l ack of transportation kept you from medical appts, meetings, work or from getting things needed for daily living? No 01/07/2024 Utilities Answer Date Recorded In the past 12 months, has t he electric, gas, oil or water company threatened to shut off services in your home? No 01/07/2024 Depression Answer Date Recorded Patient Health Questionnaire-2 Score 2 12/12/2024 Internet Access Answer Date Recorded Internet Access Q1 Yes 06/23/2024 Internet Access Q2 Not on file 06/23/2024 Comments No Sex and Gender Information Value Date Recorded Sex Assigned at Female 10/19/2022 9:36 AM EST Legal Sex Female 9:19 AM EST Gender Identity Female 10/19/2022 9:36 AM EST Sexual Orientation Straight 04/10/2023 10 :37 AM EDT documented as of this encounter Miscellaneous Notes * Telephone Encounter - Shaye Garcia MA - 12/11/2024 8:00 AM EST Chart Prep Labs: done Images: not applicable Vaccines due: yes Referrals: pending appt Screenings: mammogram , eye exam , Foot Exam Overdue care gaps: A1C, Glucose, Sbirt, PHQ-9 documented in this encounter Plan of Treatment Upcoming Encounters Date Type Department Care Team ([facility] st Contact Info) Description 12/15/2024 10:00 AM EST Clinical Support [facility] CHC MED & PEDS [address] [place] [address] documented as of this encounter Visit Diagnoses Not on filedocumented in this encounter Additional Health Concerns Assessment Noted Time PHQ-9 Depression Total Score: 17 024 9:31 AM EDT documented as of this encounter Care Teams Flea Market Seller Relationship Specialty Start Date End Date Lisa Ceballos FNP [address] [place] [address] PCP - General Family Medicine 10/19/22 Jose Albarado Community Health Worker 05/22/24 Loi Fitzpatrick Tube Room CashierIncinerator Plant Supervisor 11/19/24 documented as of this encounter
--- OUTSIDE RECORDS SUMMARY | 2024-12-12 12:38 | XMS_ITS | Encounter Summary ---
Author Organization [employer] Address 75 [facility] 7t [place] [address] Care Team Providers Care Children'S Service Supervisor Name Role Phone Lisa Ceballos Primary Care Provider [phone] Jose Albarado Unavailable Unavailable Reason for Visit * Reason Comments Care Coordination [facility] care plan Encounter Details Date Type Department Care Team ([facility] Contact Info) Description 11/19/2024 Telephone [facility] MEDICINE [address] [place] [address] Lisa Ceballos FNP [address] [place] [address] Care Coordination ([facility] care plan) Social History Tobacco Use Types Packs/Day Years Used Date Smoking Tobacco: Never Passive Smoke Exposure: Never Smokeless Tobacco: Never Alcohol Use Standard Drinks/Week Comments Never 0 (1 standard drink = 0.6 oz pur e alcohol) Depression Answer Date Recorded Patient Health Questionnaire-9 Score 17 05/23/2024 Patient Health Questionnaire-9 Score 17 05/23/2024 Last PHQ-9: Questionnaire Data Not on file 0 05/23/2024 Housing Stability Answer Date Recorded What is [...] Answer Date Recorded Patient Health Questionnaire-2 Score 6 05/23/2024 Internet Access Answer Date Recorded Internet Access Q1 Yes 06/23/2024 Internet Access Q2 Not on file 06/23/2024 Comments No Sex and Gender Information Value Date Recorded Sex Assigned at Female 10/19/2022 9:36 AM EST Legal Sex Female 9:19 AM EST Gender Identity Female 10/19/2022 9:36 AM EST Sexual Orientation Straight 04/10/2023 10 :37 AM EDT documented as of this encounter Progress Notes * Linda Plasencia - 11/19/2024 10:04 AM EST PCP Designee has received and reviewed Care Plan from [facility]: Computer Programmer: Loi Fitzpatrick Contact Information: [phone] Care Plan scanned into patient's EHR and notification sent to PCP. documented in this encounter Plan of Treatment Upcoming Encounters Date Type Department Care Team ([facility] st Contact Info) Description 12/15/2024 10:00 AM EST Clinical Support [facility] MED & PEDS [address] [place] [address] documented as of this encounter Visit Diagnoses Not on filedocumented in this encounter Additional Health Concerns Assessment Noted Time PHQ-9 Depression Total Score: 17 024 9:31 AM EDT documented as of this encounter Care Teams Children'S Service Supervisor Relationship Specialty Start Date End Date Lisa Ceballos FNP [address] [place] [address] PCP - General Family Medicine 10/19/22 Jose Albarado Community Health Worker 05/22/24 Loi Fitzpatrick Director Of Cardiac RehabilitationFuel House Attendant 11/19/24 documented as of this encounter
--- OUTSIDE RECORDS SUMMARY | 2024-12-12 12:38 | XMS_ITS | Encounter Summary ---
Author Organization [employer] Address 75 [facility] 7t [place] [address] Care Team Providers Care Nurse Assistant Name Role Phone Lisa Ceballos Primary Care Provider [phone] Jose Albarado Unavailable Unavailable Reason for Visit * Reason Onset Date Comments Med Refill 08/16/2024 Encounter Details Date Type Department Care Team ([facility] st Contact Info) Description 08/16/2024 Refill [facility] MEDICINE [address] [place] [address] Lisa Ceballos FNP [address] [place] [address] Genital herpes simplex, unspecified site Social History Tobacco Use Types Packs/Day Years [...] Description 12/15/2024 10:00 AM EST Clinical Support [facility] MED & PEDS [address] [place] [address] documented as of this encounter Visit Diagnoses Diagnosis Genital herpes simplex, unspecified site documented in this encounter Additional Health Concerns Assessment Noted Time PHQ-9 Depression Total Score: 17 024 9:31 AM EDT documented as of this encounter Care Teams Nurse Assistant Relationship Specialty Start Date End Date Lisa Ceballos FNP [address] [place] [address] PCP - General Family Medicine 10/19/22 Jose Albarado Community Health Worker 05/22/24 Loi Fitzpatrick Host/Hostess HeadSign Painter 11/19/24 documented as of this encounter
--- OUTSIDE RECORDS SUMMARY | 2024-12-12 12:38 | XMS_ITS | Encounter Summary ---
Author Organization [employer] Address [address] [facility] 7t [place] [address] Care Team Providers Care Buildings Painter Name Role Phone Lisa Ceballos Primary Care Provider [phone] Jose Albarado Unavailable Unavailable Reason for Visit * Reason Onset Date Comments Nurse Triage 03/24/2024 Encounter Details Date Type Department Care Team ([facility] st Contact Info) Description 03/24/2024 Telephone [facility] MEDICINE [address] [place] [address] Lisa Ceballos FNP [address] [place] [address] Nurse Triage Social History Tobacco Use Types Packs/Day Years Used Date Smoking Tobacco: Never Passive Smoke Exposure: Never Smokeless Tobacco: Never Alcohol Use Standard Drinks/Week Comments Never 0 (1 standard drink = 0.6 oz pur e alcohol) Depression Answer Date Recorded Patient Health Questionnaire-9 Score 9 12/17/2023 Patient Health Questionnaire-9 Score 9 12/17/2023 Last PHQ-9: Questionnaire Data Not on file 0 12/17/2023 Housing Stability Answer Date Recorded What is [...] Answer Date Recorded Patient Health Questionnaire-2 Score 0 12/17/2023 Comments No Sex and Gender Information Value Date Recorded Sex Assigned at Female 10/19/2022 9:36 AM EST Legal Sex Female 9:19 AM EST Gender Identity Female 10/19/2022 9:36 AM EST Sexual Orientation Straight 04/10/2023 10 :37 AM EDT documented as of this encounter Miscellaneous Notes * Telephone Encounter - Marita Melton RN - 03/24/2024 4:40 PM EDT Triage call Pt reports works at [employer] and was working, : on the belt . Pt had got stuck while pushing the boxes and another box fell on right hand/wrist causing an injury. Pt reports had to finish shift and then was told to go to see PCP. Pt doesn't know if this is a workmans comp situation. Pt reports is having difficulty driving due to pain. Pain is now radiating to right elbow . Pt reports area is swollen and bone looks way larger . Pt has applied ice and then heat as per company safety directions. No apts available in [place] [place] and Pt is advised to go directly to closest ED for evaluation ofinjury. Pt agreed with this disposition. Pt is advised to apply ice/heat, keep wrist above heart level. Pt will call for follow up apt. Protocol Used: Hand and Wrist Injury (Adult) Protocol-Based Disposition: See in Office or Video Visit Today Video visit offer not recorded Positive Triage Questions: * Severe pain (e.g., excruciating) * Can't use injured hand normally (e.g., make a fist, open fully, hold a glass of water) * Patient wants to be seen * All higher-acuity triage questions were negative Care Advice Discussed: * Reassurance and Education - Direct Blow (Contusion, Bruise) * Reassurance and Education - Bending or Twisting Injury (Strain, Sprain) * Use a Cold Pack for Pain, Swelling, or Bruising * Use Heat on Area After 48 Hours * Wrap With an Elastic Bandage * Elevate the Arm * Reasons To Call Back - Pain becomes severe - Pain does not improve after 3 days - Pain or swelling lasts more than 2 weeks - You become worse * Telephone Encounter - Cinthya Per - 03/24/2024 3:43 PM EDT Symptom: Hand or Wrist Injury Outcome: Talk to a nurse or provider within 15 minutes Reason: Bone looks broken or crooked The caller accepted this outcome Please contact pt at [phone] documented in this encounter Plan of Treatment Upcoming Encounters Date Type Department Care Team (Late st Contact Info) Description 12/15/2024 10:00 AM EST Clinical Support [facility] MED & PEDS [address] [place] [address] documented as of this encounter Visit Diagnoses Not on filedocumented in this encounter Additional Health Concerns Assessment Noted Time PHQ-9 Depression Total Score: 9 12/17/19 24 2:45 PM EST documented as of this encounter Care Teams Buildings Painter Relationship Specialty Start Date End Date Lisa Ceballos FNP [address] [place] [address] PCP - General Family Medicine 10/19/22 Jose Albarado Community Health Worker 05/22/24 Loi Fitzpatrick Lease OperatorDuty Officer 11/19/24 documented as of this encounter
--- OUTSIDE RECORDS SUMMARY | 2024-12-12 12:38 | XMS_ITS | Encounter Summary ---
Author Organization [email or web address] Address [address] [facility] 7t [place] [address] Care Team Providers Care Jogger Operator Name Role Phone Lisa Ceballos Primary Care Provider Jose Albarado Unavailable Unavailable Reason for Visit * Reason Onset Date Comments Lab Orders 05/09/2023 Encounter Details Date Type Department Care Team ([facility] st Contact Info) Description 05/09/2023 Telephone [facility] MEDICINE [address] [place] [address] Lisa Ceballos FNP [address] [place] [address] Lab Orders Social History Tobacco Use Types Packs/Day Years [...] Access Q2 Not on file 06/23/2024 Comments Unknown Sex and Gender Information Value [...] was confirmed or suspected to have Coronavirus/COVID-19? Yes 04/10/2023 10:40 AM EDT documented as of this encounter Miscellaneous Notes * Telephone Encounter - Diana Escalante RN - 05/10/2023 10:21 AM EDT TC X1 to inform order was placed for TB testing. LVM to return call to nurses. * Telephone Encounter - Jasen Phillips - 05/09/2023 1:34 PM EDT Tc from pt requesting a order for TB , States needs for work. Please contact at [phone] documented in this encounter Plan of Treatment Upcoming Encounters Date Type Department Care Team (Late st Contact Info) Description 12/15/2024 10:00 AM EST Clinical Support [facility] MED & PEDS [address] [place] [address] documented as of this encounter Visit Diagnoses Not on filedocumented in this encounter Additional Health Concerns Assessment Noted Time PHQ-9 Depression Total Score: 8 02/20/20 23 2:09 PM EDT documented as of this encounter Care Teams Jogger Operator Relationship Specialty Start Date End Date Lisa Ceballos FNP [address] [place] [address] PCP - General Family Medicine 10/19/22 Jose Albarado Community Health Worker 05/22/24 documented as of this encounter
--- OUTSIDE RECORDS SUMMARY | 2024-12-12 12:38 | XMS_ITS | Encounter Summary ---
Author Organization [employer] Address [address] [facility] [address] [place] [address] Care Team Providers Care Creative Guru Name Role Phone Lisa Ceballos REPORT CLERK Primary Care Provider [phone] Jose Albarado Unavailable Unavailable Encounter Details Date Type Department Care Team (Latest Contact Info) Description 12/12/2024 Travel Social History Tobacco Use Types Packs/Day Years [...] Description 12/15/2024 10:00 AM EST Clinical Support [facility] MED & PEDS [address] [place] [address] documented as of this encounter Visit Diagnoses Not on filedocumented in this encounter Additional Health Concerns Assessment Noted Time PHQ-9 Depression Total Score: 4 12/12/19 25 11:40 AM EST documented as of this encounter Care Teams Creative Guru Relationship Specialty Start Date End Date Lisa Ceballos FNP [address] [place] [address] PCP - General Family Medicine 10/19/22 Jose Albarado Community Health Worker 05/22/24 Loi Fitzpatrick Dry Kiln FeederCurtains And Draperies Salesperson 11/19/24 documented as of this encounter
--- OUTSIDE RECORDS SUMMARY | 2024-12-12 12:38 | XMS_ITS | Encounter Summary ---
Author Organization [employer] Address [address] [facility] 7t [place] [address] Care Team Providers Care Bleacher Kraft Pulp Name Role Phone Lisa Ceballos Primary Care Provider [phone] Jose Albarado Unavailable Unavailable Reason for Visit * Reason Onset Date Comments Triage 11/21/2024 Encounter Details Date Type Department Care Team ([facility] Contact Info) Description 11/21/[address] [facility] CHC MED & PEDS [address] [place] [address] Lisa Ceballos FNP [address] [place] [address] Triage Social History Tobacco Use Types Packs/Day [...] encounter Miscellaneous Notes * Telephone Encounter - BRUCE Hodge - 11/23/2024 5:01 PM EST [place] [facility], It looks like you will be working with Ms. Colvin - thank you for your collaboration with her care. I saw it was noted that she went to [facility] ED on 11/20/24, and that she is requesting a surgery referral for a hernia. In order to place the referral, we will need the notes fromthe ED visit (and possibly a provider visit here) Can you please assist with retrieving the records from the ED visit and letting me know when they are available? Thank you! * Telephone Encounter - Rukhsana Sierra RN - 11/21/2024 9:46 AM EST Call returned to Shania Colvin to triage below. Reports having umbilical hernia on umbilicus. Per ptreports having a second one appear 3 days ago. Per pt started having burning pain. Pt seen at [facility] ER for abdominal pain. Pt was referred to General Surgeon with [facility]. Pt states has called number on patient education packet with no answer, Pt given number on [facility] website [phone]. Pt requesting that PCP submit referral for pt to [facility] General Surgery [place] [address] [place] [address]. Sent to PCP to review and further advise [facility] primary care team as needed. Pt states was given compression belt to help with pain. Advised to return to ER if vomiting, fast spreading redn ess or purple color to area of umbilical swelling or severe pain. Pt agrees. Protocol Used: Recent Medical Visit for Illness Follow-up Call (Adult) Protocol-Based Disposition: Callback or Video Visit by PCP Today Video visit offer not recorded Positive Triage Question: * Caller has NON-URGENT question (includes prescribed medication questions) and triager unable to answer * All higher-acuity triage questions were negative Care Advice Discussed: * Reasons To Call Back - You become worse * Telephone Encounter - Sofia Leo - 11/21/2024 9:35 AM EST CHW Sofia Leo outbound call to patient. During our conversation patient states she having abdominal pain. documented in this encounter Plan of Treatment Upcoming Encounters Date Type Department Care Team (Late st Contact Info) Description 12/15/2024 10:00 AM EST Clinical Support [facility] MED & PEDS [address] [place] [address] documented as of this encounter Visit Diagnoses Not on filedocumented in this encounter Additional Health Concerns Assessment Noted Time PHQ-9 Depression Total Score: 17 024 9:31 AM EDT documented as of this encounter Care Teams Bleacher Kraft Pulp Relationship Specialty Start Date End Date Lisa Ceballos FNP [address] [place] [address] PCP - General Family Medicine 10/19/22 Jose Albarado Community Health Worker 05/22/24 Loi Fitzpatrick Foil SpinnerAnalysis Engineer 11/19/24 documented as of this encounter
--- OUTSIDE RECORDS SUMMARY | 2024-12-12 12:38 | XMS_ITS | Encounter Summary ---
Author Organization [facility] Address [address] [place] [address] Care Team Providers Care Marble Polisher Hand Name Role Phone Pcp, No Primary Care Provider Unavailabl e Encounter Details Date Type Department Care Team (Late st Contact Info) Description 12/02/2024 Scanned Document [facility] Department of Physiatry [place] [address] [place] [address] Luda Nielson MD [address] [place] [address] Social History Tobacco Use Types Packs/Day Years Used Date Smoking Tobacco: Never Assessed Sex and Gender Information Value Date Recorded Sex Assigned at Not on file Gender Identity Not on file Sexual Orientation Not on file documented as of this encounter Plan of Treatment Upcoming Encounters Date Type Department Care Team (Late st Contact Info) Description 12/22/2024 2:15 PM EST Procedure visit [facility] Department of Physiatry [place] [address] [place] [address] Luad Nielson MD [address] [place] [address] documented as of this encounter Visit Diagnoses Not on filedocumented in this encounter Care Teams Marble Polisher Hand Relationship Specialty Start Date End Date Pcp, No PCP - General General Medicine 05/24/20 documented as of this encounter
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
--- OUTSIDE RECORDS SUMMARY | 2024-12-12 12:38 | XMS_ITS ---
Author Name [employer] Organization Unknown Problems Problem Status Onset Date Problem Type Date of Resoluti on Source Radial styloid tenosynovitis (disorder) active 2024-11-11 ProblemAct [facility] Carpal tunnel syndrome of right wrist (disorder) active 2024-11-11 ProblemAct [facility] DC Tenosynovitis of right wrist (disorder) active 2024-11-11 ProblemAct [facility]
--- OUTSIDE RECORDS SUMMARY | 2024-12-12 12:38 | XMS_ITS | Encounter Summary ---
Author Organization [employer] Address [address] [facility] 7t [place] [address] Care Team Providers Care Residential Case Manager Name Role Phone Lisa Ceballos Primary Care Provider [phone] Jose Albarado Unavailable Unavailable Reason for Visit * Reason Comments Triage Encounter Details Date Type Department Care Team ([facility] Contact Info) Description 11/21/2024 Patient Outreach [facility] CHC MED & PEDS [address] [place], [place] [phone] Lisa Ceballos FNP [address] [place] [address] Triage Social History Tobacco Use Types Packs/Day [...] Upcoming Encounters Date Type Department Care Team ([facility] st Contact Info) Description 12/15/2024 10:00 AM EST Clinical Support [facility] MED & PEDS [address] [place] [address] documented as of this encounter Visit Diagnoses Not on filedocumented in this encounter Additional Health Concerns Assessment Noted Time PHQ-9 Depression Total Score: 17 024 9:31 AM EDT documented as of this encounter Care Teams Residential Case Manager Relationship Specialty Start Date End Date Lisa Ceballos FNP [address] [place] [address] PCP - General Family Medicine 10/19/22 Jose Albarado Community Health Worker 05/22/24 Loi Fitzpatrick Panama Hat BlockerEdge Bander Hand 11/19/24 documented as of this encounter
--- OUTSIDE RECORDS SUMMARY | 2024-12-12 12:38 | XMS_ITS | Encounter Summary ---
Author Organization [employer] Address [address] [facility] 7t [place] [address] Care Team Providers Care Tobacco Sorter Name Role Phone Lisa Ceballos CORPORATE GIVING MANAGER Primary Care Provider [phone] Jose Albarado Unavailable Unavailable Encounter Details Date Type Department Care Team ([facility] Contact Info) Description 04/07/2024 Orders Only [facility] CHC MED & PEDS [address] [place], [place] [phone] Fabiola Aguilar MD [address] [place] [address] Social History Tobacco Use Types Packs/Day Years [...] [facility] MED & PED[facility] [address] [place] [address] documented as of this encounter Visit Diagnoses Not on filedocumented in this encounter Additional Health Concerns Assessment Noted Time PHQ-9 Depression Total Score: 9 12/17/19 2:45 PM EST documented as of this encounter Care Teams Tobacco Sorter Relationship Specialty Start Date End Date Lisa Ceballos FNP [address] [place] [address] PCP - General Family Medicine 10/19/22 Jose Albarado Community Health Worker 05/22/24 Loi Fitzpatrick Pest Management SupervisorDigital Strategy Director 11/19/24 documented as of this encounter
--- OUTSIDE RECORDS SUMMARY | 2024-12-12 12:38 | XMS_ITS | Encounter Summary ---
Author Organization [employer] Address [address] [facility] 7t [place] [address] Care Team Providers Care Social Services Technician Name Role Phone iLsa Ceballos Primary Care Provider [phone] Jose Albarado Unavailable Unavailable Reason for Visit * Reason Comments Med Refill Encounter Details Date Type Department Care Team ([facility] Contact Info) Description 12/03/2024 Refill [facility] CHC MED & PEDS [address] [place], [place] [phone] Lisa Ceballos FNP [address] [place] [address] Type 2 diabetes mellitus without complication, without long-term current use of insulin ([facility]) Social History Tobacco Use Types Packs/Day Years [...] Description 12/15/2024 10:00 AM EST Clinical Support [facility] CHC MED & PEDS [address] [place] [address] documented as of this encounter Visit Diagnoses Diagnosis Type 2 diabetes mellitus without complication, without long-term current use of insulin ([facility]) documented in this encounter Additional Health Concerns Assessment Noted Time PHQ-9 Depression Total Score: 17 024 9:31 AM EDT documented as of this encounter Care Teams Social Services Technician Relationship Specialty Start Date End Date Lisa Ceballos FNP [address] [place] [address] PCP - General Family Medicine 10/19/22 Jose Albarado Community Health Worker 05/22/24 Loi Fitzpatrick Water/Wastewater Project EngineerStage Driver 11/19/24 documented as of this encounter
--- OUTSIDE RECORDS SUMMARY | 2024-12-12 12:38 | XMS_ITS | Encounter Summary ---
Author Organization [employer] Address [address] [place] [address] Care Team Providers Care Ict Managers Name Role Phone Pcp, No Primary Care Provider Unavailabl e Encounter Details Date Type Department Care Team (Late st Contact Info) Description 12/01/2024 Scanned Document [facility] Department of Physiatry [place] [address] [place] [address] Luda Nielson MD [address] [place] [address] Social History Tobacco Use Types Packs/Day Years Used Date Smoking Tobacco: Never Assessed Sex and Gender Information Value Date Recorded Sex Assigned at Not on file Gender Identity Not on file Sexual Orientation Not on file documented as of this encounter Plan of Treatment Upcoming Encounters Date Type Department Care Team (Late st Contact Info) Description 12/22/2024 2:15 PM EST Procedure visit [facility] Department of Physiatry [place] [address] [place] [address] Luda Nielson MD [address] [place] [address] documented as of this encounter Visit Diagnoses Not on filedocumented in this encounter Care Teams Ict Managers Relationship Specialty Start Date End Date Pcp, No PCP - General General Medicine 05/24/20 documented as of this encounter
--- OUTSIDE RECORDS SUMMARY | 2024-12-12 12:38 | XMS_ITS | Encounter Summary ---
Author Organization [employer] Address [address] [facility] 7t [place] [address] Care Team Providers Care Cyber Security Systems Engineer Name Role Phone Lisa Ceballos Primary Care Provider [phone] Jose Albarado Unavailable Unavailable Reason for Visit * Reason Comments Care Coordination Outreach Encounter Details Date Type Department Care Team (Latest Contact Info) Description 11/28/2024 Patient Outreach [facility] CHC MED & PEDS [address] [place], [place] [phone] Lisa Ceballos FNP [address] [place] [address] Care Coordination (Outreach) Social History Tobacco Use Types Packs/Day Years [...] as of this encounter Progress Notes * Sofia Leo - 11/28/2024 10:11 AM EST CHW Sofia Leo placed outbound call to patient in regards to rescheduling missed initial assessment appointment on 11/24/24 for Adult Complex Care program services. Patient's name and were confirmed. Initial Assessment appointment scheduled for 12/01/24 at 10:00 AM. CHW will set up an appointment reminder and will notify CM. CHW provided contact information of [phone] for any questions orconcerns. documented in this encounter Plan of Treatment Upcoming Encounters Date Type Department Care Team ([facility] st Contact Info) Description 12/15/2024 10:00 AM EST Clinical Support [facility] CHC MED & PEDS [address] [place] [address] documented as of this encounter Visit Diagnoses Not on filedocumented in this encounter Additional Health Concerns Assessment Noted Time PHQ-9 Depression Total Score: 17 024 9:31 AM EDT documented as of this encounter Care Teams Cyber Security Systems Engineer Relationship Specialty Start Date End Date Lisa Ceballos FNP [address] [place] [address] PCP - General Family Medicine 10/19/22 Jose Albarado Community Health Worker 05/22/24 Loi Fitzpatrick Payroll MasterTerminal Operations Supervisor 11/19/24 documented as of this encounter
--- OUTSIDE RECORDS SUMMARY | 2024-12-12 12:38 | XMS_ITS | Encounter Summary ---
Author Organization [email or web address] Address [address] [place] [address] 7 [place] [address] Care Team Providers Care Optics Technical Officer Name Role Phone Lisa Ceballos Primary Care Provider [phone] Jose Albarado Unavailable Unavailable Reason for Referral * Consultation (Routine) - Authorized Specialty Diagnoses / Procedures Referred By Carlos t Referred To Contact Pharmacy Diagnoses Type 2 diabetes mellitus without complication, without long-term current use of insulin ([facility]) Lisa Ceballos FNP [address] [place] [address] Phone: tel: fax: Referral ID Status Reason Start Date Expiration Date Visits Requested Visits Authorized [id number] Authorized Consult and Treat 12/12/2024 12/12/2025 6 6 Scheduling Instructions CH[facility] * Neurology (Routine) - Authorized Specialty Diagnoses / Procedures Referred By Carlos tao Referred To Contact Diagnoses Foot pain, bilateral Procedures EMG Lisa Ceballos FNP [address] [place] [address] Phone: tel: fax: [address] Phone: tel: fax: Referral ID Status Reason Start Date Expiration Date V isits Requested Visits Authorized [id number] Authorized 12/12/2024 12/12/2025 1 1 Encounter Details Date Type Department Care Team ([facility] st Contact Info) Description 12/12/2024 10:00 AM EST Office Visit [facility] MED & PEDS [address] [place] [address] LaurynLisa ramirez, INSOLE CHANNELER [address] [place] [address] Type 2 diabetes mellitus without complication, without long-term current use of insulin (CMS/HCC) (Primary Dx); Foot pain, bilateral; Encounter for immunization Social History Tobacco Use Types Packs/Day Years [...] AM EDT documented as of this encounter Last Filed Vital Signs Vital Sign Reading Time Taken Comments Blood Pressure 131/84 12/12/2024 10:25 AM EST Pulse 68 12/12/2024 10:25 AM EST Temperature 37.1 ??C (98.7 ??F) 12/12/2024 10:[address] Respiratory Rate 20 12/12/2024 10:25 AM EST Oxygen Saturation 99% 12/12/2024 10:25 AM EST Inhaled Oxygen Concentration - - Weight 98.6 kg (217 lb 6 oz) 12/12/2024 10:25 AM EST Height 152.4 cm (5') 12/12/2024 10:25 AM EST Body Mass Index 42.45 12/12/2024 10:25 AM EST documented in this encounter Patient Instructions * Patient Instructions* BRUCE Hodge - 12/12/2024 10:00 AM EST Please look into the following medications to further discuss during the appointment with the [facility] team: - Empagliflozin (Jardiance) - Dapagliflozin (Farxiga) - Sitagliptin (Januvia) documented in this encounter Plan of Treatment Upcoming Encounters Date Type Department Care Team (Late st Contact Info) Description 12/15/2024 10:00 AM EST Clinical Support [facility] MED & PEDS [address] [place] [address] Scheduled Orders Name Type Priority Associated Diagnoses Orde r Schedule Comprehensive Metabolic Panel Lab Routine Type 2 diabetes mellitus without complication, without long-term current use of insulin ([facility]) Expected: 12/12/2024 (Approximate), Expires: 12/12/2025 Lipid Panel, Standard Lab Routine Type 2 diabetes mellitus without complication, without long-term current use of insulin (CMS/HCC) Expected: 12/12/2024 (Approximate), Expires: 12/12/2025 Albumin, Random Urine W/Creatinine Lab Routine Type 2 diabetes mellitus without complication, without long-term current use of insulin ([facility]) Expected: 12/12/2024 (Approximate), Expires: 12/12/2025 TSH with Reflex to Free T4 Lab Routine Type 2 diabetes mellitus without complication, without long-term current use of insulin ([facility]) Expected: 12/12/2024 (Approximate), Expires: 12/12/2025 EMG Neurology Routine Foot pain, bilateral Expected: 12/12/2024, Expires: 06/11/2025 Scheduled Referrals Name Type Priority Associated Diagnoses Orde r Schedule Referral to Pharmacy CD Outpatient Referral Routine Type 2 diabetes mellitus without complication, without long-term current use of insulin ([facility]) Ordered: 12/12/2024 documented as of this encounter Procedures Procedure Name Priority Date/Time Associated Diagnosis Comments POCT GLYCATED HEMOGLOBIN, TOTAL Routine 12/12/2024 10:33 AM EST Type 2 diabetes mellitus without complication, without long-term current use of insulin ([facility]) POCT GLUCOSE Routine 12/12/2024 10:33 AM EST Type 2 diabetes mellitus without complication, without long-term current use of insulin ([facility]) documented in this encounter Results * (ABNORMAL) POCT HGB A1C (12/12/2024 10:33 AM EST) Hemoglobin A1C 8.7(A) 4.0 - 6.0 % QC Media Lot # [id number] Lot# Expiration Date ,026 Blood 12/12/2024 10:3 3 AM EST us Lisa Ceballos INSOLE CHANNELER POINT OF CARE TEST ENTER/EDIT ORDERABLES Final Result * (ABNORMAL) POCT Glucose (12/12/2024 10:33 AM EST) Glucose Blood, POC 225(A) 60 - 200 mg/dL QC Media Lot # [id number] Lot# Expiration Date 482,025 Blood Capillary blood specimen / Unknown 12/12/2024 10:33 AM EST Lisa BARRERA POINT OF CARE TEST ENTER/EDIT ORDERABLES Final Result documented in this encounter Visit Diagnoses Diagnosis Type 2 diabetes mellitus without complication, without long-term current use of insulin ([facility])- Primary Foot pain, bilateral Encounter for immunization documented in this encounter Additional Health Concerns Assessment Noted Time PHQ-9 Depression Total Score: 4 12/12/19 25 11:40 AM EST documented as of this encounter Care Teams Optics Technical Officer Relationship Specialty Start Date End Date Lisa Ceballos FNP [address] [place] [address] PCP - General Family Medicine 10/19/22 Jose Albarado Community Health Worker 05/22/24 Loi Fitzpatrick Restaurant AssistantMetal Sprayer Machined Parts 11/19/24 documented as of this encounter
--- OUTSIDE RECORDS SUMMARY | 2024-12-12 12:38 | XMS_ITS | Encounter Summary ---
Author Organization [employer] Address [address] [facility] 7t [place] [address] Care Team Providers Care Loans Consultant Name Role Phone Lisa Ceballos Primary Care Provider [phone] Jose Albarado Unavailable Unavailable Reason for Visit * Reason Comments Care Coordination Outreach Encounter Details Date Type Department Care Team (Latest Contact Info) Description 12/04/2024 Patient Outreach [facility] CHC MED & PEDS [address] [place], [place] [phone] Lisa Ceballos FNP [address] [place] [address] Care Coordination (Outreach) Social History Tobacco Use [...] encounter Progress Notes * Sofia Leo - 12/04/2024 10:38 AM EST CHW Sofia Leo called patient to introduce Adult Complex Care Program. Patient's name, and Address was confirmed. Program information was provided to the patient. Patient declined to participate in program. Provided patient with direct contact information for future reference. documented in this encounter Plan of Treatment Upcoming Encounters Date Type Department Care Team (Late st Contact Info) Description 12/15/2024 10:00 AM EST Clinical Support [facility] MED & PEDS [address] [place] [address] documented as of this encounter Visit Diagnoses Not on filedocumented in this encounter Additional Health Concerns Assessment Noted Time PHQ-9 Depression Total Score: 17 024 9:31 AM EDT documented as of this encounter Care Teams Loans Consultant Relationship Specialty Start Date End Date Lisa Ceballos FNP [address] [place] [address] PCP - General Family Medicine 10/19/22 Jose Albarado Community Health Worker 05/22/24 Loi Fitzpatrick Negative SpotterCan Handler 11/19/24 documented as of this encounter
--- OUTSIDE RECORDS SUMMARY | 2024-12-12 12:38 | XMS_ITS | Encounter Summary ---
Author Organization [employer] Address [address] [facility] 7t [place] [address] Care Team Providers Care Embedder Name Role Phone Lisa Ceballos MICROBIOLOGY COORDINATOR Primary Care Provider [phone] Jose Albarado Unavailable Unavailable Reason for Visit * Reason Comments Med Refill Encounter Details Date Type Department Care Team ([facility] Contact Info) Description 05/21/2024 Refill [facility] MEDICINE [address] [place], [place] [phone] Dyana Matthew CNM [address] [place] [address] Social History Tobacco Use Types Packs/Day Years [...] Recorded Patient Health Questionnaire-2 Score 6 05/23/2024 Comments No Sex and Gender Information Value [...] 12/15/2024 10:00 AM EST Clinical Support [facility] MED & PEDS [address] [place] [address] documented as of this encounter Visit Diagnoses Not on filedocumented in this encounter Additional Health Concerns Assessment Noted Time PHQ-9 Depression Total Score: 9 12/17/19 24 2:45 PM EST documented as of this encounter Care Teams Embedder Relationship Specialty Start Date End Date Lisa Ceballos FNP [address] [place] [address] PCP - General Family Medicine 10/19/22 Jose Albarado Community Health Worker 05/22/24 Loi Fitzpatrick Distribution LinemanManager Group Home 11/19/24 documented as of this encounter
--- OUTSIDE RECORDS SUMMARY | 2024-12-12 12:38 | XMS_ITS | Encounter Summary ---
Author Organization [employer] Address [address] [facility] 7t [place] [address] Care Team Providers Care Personnel Technician Name Role Phone Lisa Ceballos PROFESSIONAL SERVICES CONSULTANT Primary Care Provider [phone] Jose Albarado Unavailable Unavailable Reason for Visit * Reason Onset Date Comments Med Refill 04/02/2024 Encounter Details Date Type Department Care Team ([facility] st Contact Info) Description 04/02/2024 Refill [facility] [address] [place] [address] Fabiola Aguilar MD [address] [place] [address] Essential hypertension Social History Tobacco Use Types Packs/Day Years [...] enough money to get more: Never True 03/ Transportation Answer Date Recorded In the past [...] Description 12/15/2024 10:00 AM EST Clinical Support [facility] MED & PEDS [address] [place] [address] documented as of this encounter Visit Diagnoses Diagnosis Essential hypertension Unspecified essential hypertension documented in this encounter Additional Health Concerns Assessment Noted Time PHQ-9 Depression Total Score: 9 12/17/19 24 2:45 PM EST documented as of this encounter Care Teams Personnel Technician Relationship Specialty Start Date End Date Lisa Ceballos FNP [address] [place] [address] PCP - General Family Medicine 10/19/22 Jose Albarado Community Health Worker 05/22/24 Loi Fitzpatrick Sales Solutions AssociateAbap Developer 11/19/24 documented as of this encounter
--- OUTSIDE RECORDS SUMMARY | 2024-12-12 12:38 | XMS_ITS | Encounter Summary ---
Author Organization [employer] Address [address] [facility] 7t [place] [address] Care Team Providers Care Investment Banking Manager Name Role Phone Lisa Ceballos REAL ESTATE BROKER Primary Care Provider Jose Albarado Unavailable Unavailable Encounter Details Date Type Department Care Team ([facility] Contact Info) Description 05/02/2023 Orders Only [facility] MEDICINE [address] [place] [address] Viri Rodriguez LPN Social History Tobacco Use Types Packs/Day Years Used Date Smoking Tobacco: Never Passive Smoke Exposure: Never Smokeless Tobacco: Never Alcohol Use Standard Drinks/Week Comments Never 0 (1 standard drink = 0.6 oz pur e alcohol) Depression Answer Date Recorded Patient Health Questionnaire-9 Score 8 02/19/2023 Depression Answer Date Recorded Patient Health Questionnaire-2 [...] 12/15/2024 10:00 AM EST Clinical Support [facility] CHC MED & PEDS [address] [place], [place] [phone] documented as of this encounter Visit Diagnoses Not on filedocumented in this encounter Additional Health Concerns Assessment Noted Time PHQ-9 Depression Total Score: 8 02/20/20 23 2:09 PM EDT documented as of this encounter Care Teams Investment Banking Manager Relationship Specialty Start Date End Date Lisa Ceballos FNP [address] [place] [address] PCP - General Family Medicine 10/19/22 Jose Albarado Community Health Worker 05/22/24 Loi Fitzpatrick Automotive BuyerCranberry Bog Supervisor 11/19/24 documented as of this encounter
--- OUTSIDE RECORDS SUMMARY | 2024-12-12 12:38 | XMS_ITS | Encounter Summary ---
Author Organization [employer] Address [address] [facility] 7t [place] [address] Care Team Providers Care Bonding Equipment Operator Name Role Phone Lisa Ceballos Primary Care Provider [phone] Jose Albarado Unavailable Unavailable Reason for Visit * Reason Onset Date Comments ER Follow-up 03/25/2024 Encounter Details Date Type Department Care Team ([facility] Contact Info) Description 03/25/2024 Telephone [facility] CHC MED & PEDS [address] [place], [place] [phone] Lisa Ceballos FNP [address] [place] [address] ER Follow-up Social History Tobacco Use Types Packs/Day Years [...] encounter Miscellaneous Notes * Telephone Encounter - Wing Brii RN - 03/26/2024 9:33 AM EDT Tc to pt regarding ED visit on 03/24. Pt reports she is feeling better and is currently getting readyto be evaluated by [facility]'s doctor as [facility] is refusing to take ED note's recommendation for pt torest until seeing hand surgeon. Pt also inquired about accomodation from she sent in on 03/10. Stated it is being process and should be signed today or tomorrow. Advised pt to keep appt with PCP for 04/07. Pt verbalized understanding and agreement with plan. * Telephone Encounter - Rita Plasencia - 03/25/2024 10:12 AM EDT Patient calling to report ED visit on : Date: 03/24/24 Hospital: [facility] Seen for: hand injury Patient advised will forward to team nurse for follow up documented in this encounter Plan of Treatment Upcoming Encounters Date Type Department Care Team (Late st Contact Info) Description 12/15/2024 10:00 AM EST Clinical Support [facility] MED & PEDS [address] [place] [address] documented as of this encounter Visit Diagnoses Not on filedocumented in this encounter Additional Health Concerns Assessment Noted Time PHQ-9 Depression Total Score: 9 12/17/19 24 2:45 PM EST documented as of this encounter Care Teams Bonding Equipment Operator Relationship Specialty Start Date End Date Lisa Ceballos FNP [address] [place] [address] PCP - General Family Medicine 10/19/22 Jose Albarado Community Health Worker 05/22/24 Loi Fitzpatrick Child Welfare CaseworkerHotbed Lever Operator 11/19/24 documented as of this encounter
--- OUTSIDE RECORDS SUMMARY | 2024-12-12 12:38 | XMS_ITS | Encounter Summary ---
Author Organization [employer] Address [address] [facility] 7t [place] [address] Care Team Providers Care Meeting Specialist Name Role Phone Lisa Ceballos Primary Care Provider [phone] Jose Albarado Unavailable Unavailable Reason for Visit * Reason Onset Date Comments Medication Question 08/12/2024 Encounter Details Date Type Department Care Team ([facility] Contact Info) Description 08/12/2024 Telephone [facility] CHC MED & PEDS [address] [place], [place] [phone] Lisa Ceballos FNP [address] [place] [address] Medication Question Social History Tobacco Use Types Packs/Day Years [...] * Telephone Encounter - BRUCE Hodge - 08/26/2024 11:40 AM EST Please call Shania to let her know that Jardiance in fact has been shown to be beneficial for the heart. The FDA first approved use of Jardiance for diabetes in 2013. Two years later, in 2016, it was also approved for the indication of reducing the risk of CVD mortality for people living with type 2 diabetes. Thus, in general it is considered a medication beneficial for heart health. She is also always welcome to speak with a pharmacist for more information. Link to FDA Article: https://www.fda.gov/news-events/press-announcements/abb-iclxfqqr-wsjbiskoq-redu xn-tkecwchtcsidii-xljko-ccbetc-behq-4-diabetes#:~:text=The%20FDA's%20decision%20 is%20based,with%20type%202%20diabetes%20mellitus. * Telephone Encounter - Wing Brii RN - 08/22/2024 1:52 PM EDT Please advise, tc to pt who had concerns about Jardiance. Reports that she saw that a side effect was heart issues. Pt had a TIA two months ago likely due to aunt passing away at the time. Pt asking if it is safe for her to take Jardiance. Still taking Trulicity with good effect on blood sugar and BP is good at home. Will relay message to pt. Pt verbalized understanding and agreement with plan. * Telephone Encounter - Rita Plasencia - 08/12/2024 12:20 PM EDT Tc from pt requesting a call back to go over medications. documented in this encounter Plan of Treatment Upcoming Encounters Date Type Department Care Team (Late st Contact Info) Description 12/15/2024 10:00 AM EST Clinical Support [facility] MED & PEDS [address] [place] [address] documented as of this encounter Visit Diagnoses Not on filedocumented in this encounter Additional Health Concerns Assessment Noted Time PHQ-9 Depression Total Score: 17 024 9:31 AM EDT documented as of this encounter Care Teams Meeting Specialist Relationship Specialty Start Date End Date Lisa Ceballos FNP [address] [place] [address] PCP - General Family Medicine 10/19/22 Jose Albarado Community Health Worker 05/22/24 Loi Fitzpatrick Reed DipperPsychologist Engineering 11/19/24 documented as of this encounter
--- OUTSIDE RECORDS SUMMARY | 2024-12-12 12:38 | XMS_ITS | Encounter Summary ---
Author Organization [employer] Address [address] [facility] 7t [place] [address] Care Team Providers Care Surgical Garment Inspector Name Role Phone Lisa Ceballos HOSE TUBING BACKER Primary Care Provider [phone] Jose Albarado Unavailable Unavailable Reason for Visit * Reason Onset Date Comments Med Refill 04/02/2024 Encounter Details Date Type Department Care Team ([facility] st Contact Info) Description 04/02/2024 Refill [facility] MEDICINE [address] [place], [place] [phone] Eric Ramos MD [address] [place] [address] Low back pain associated with a spinal [...] your housing situation today? I have alysia carlos 01/07/[address] you li [...] 10:00 AM EST Clinical Support [facility] MED & PEDS [address] [place] [address] documented as of this encounter Visit Diagnoses Diagnosis Low back pain associated with a spinal disorder other than radiculopathy or spinal stenosis documented in this encounter Additional Health Concerns Assessment Noted Time PHQ-9 Depression Total Score: 9 12/17/19 2:45 PM EST documented as of this encounter Care Teams Surgical Garment Inspector Relationship Specialty Start Date End Date Lisa Ceballos FNP [address] [place] [address] PCP - General Family Medicine 10/19/22 Jose Albarado Community Health Worker 05/22/24 Loi Fitzpatrick Gizzard PullerDirector Of Billing 11/19/24 documented as of this encounter
--- OUTSIDE RECORDS SUMMARY | 2024-12-12 12:38 | XMS_ITS | Encounter Summary ---
Author Organization [employer] Address [address] [facility] 7t [place] [address] Care Team Providers Care Instructor Trainer Canine Service Name Role Phone Lisa Ceballos Primary Care Provider [phone] Jose Albarado Unavailable Unavailable Reason for Visit * Reason Comments Care Coordination Outreach Encounter Details Date Type Department Care Team (Latest Contact Info) Description 11/21/2024 Patient Outreach [facility] CHC MED & PEDS [address] [place], [place] [phone] Lisa Ceballos FNP [address] [place] [address] Care Coordination (Outreach) Social History Tobacco Use [...] encounter Progress Notes * Sofia Leo - 11/21/2024 9:12 AM EST CHW Sofia Leo, placed outbound call to patient introducing herself from [facility], in regards to offering services. Patient's name and was confirmed. Patient agrees to participate in program. Appt. for initial assessment scheduled for 11/24/24 @ 1:00 PM. CHW reinforced direct contact information or for any additional questions or concerns and extended clinic hours on Mondays and Wednesdays, and Walk-In Urgent Care Located in [facility] of [facility]. Patient provided with after-hours line for [facility], , which offer night time triage service and option to transfer to terminal operations supervisor provider if needed. Patient verbalizes understanding, and able to repeat back to magazine writer. documented in this encounter Plan of Treatment Upcoming Encounters Date Type Department Care Team (Late st Contact Info) Description 12/15/2024 10:00 AM EST Clinical Support [facility] MED & PEDS [address] [place] [address] documented as of this encounter Visit Diagnoses Not on filedocumented in this encounter Additional Health Concerns Assessment Noted Time PHQ-9 Depression Total Score: 17 024 9:31 AM EDT documented as of this encounter Care Teams Instructor Trainer Canine Service Relationship Specialty Start Date End Date Lisa Ceballos FNP [address] [place] [address] PCP - General Family Medicine 10/19/22 Jose Albarado Community Health Worker 05/22/24 Loi Fitzpatrick Plant EtiologistRecreation Therapy Director 11/19/24 documented as of this encounter
--- OUTSIDE RECORDS SUMMARY | 2024-12-12 12:38 | XMS_ITS | Clinical Summary ---
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 10/30/2024 11:21 AM EST Rodrigo Veras [facility] LAB BLOOD ORDERABLES Sandra l Result [facility] [address] [place] [phone] * Hepatitis C Viral RNA, Quantitative, Real-Time PCR (10/30/2024 10:28 AM EST) Hepatitis C Viral Load <15 NOT DETECTED NOT DETECTED IU/mL [facility] HCV Log PCR <1.18 NOT DETECTED NOT DETECTED Log IU/mL [facility] Comment:For additional infor mation, please refer tohttp://education.Gliph/faq/ZTC54n1(This link is being provided for informational/educational purposes only.)THIS TEST WAS PERFORMED AT:[employer] [place] [phone] CARRILLO MD Blood 10/30/2024 10:2 8 AM EST 10/30/2024 11:23 AM EST Lisa Ceballos [facility] LAB BLOOD ORDERABLES Final Res ult Performing Organization Address [facility] de Phone Number [facility] [address] [place] [phone] * Hepatitis B surface antigen, EIA (10/30/2024 10:28 AM EST) Only the most recent of2 resultswithin the time period is included. Hepatitis B Surface Ag Negative Negative [facility] Blood Venous blood specimen / Unknown 10/30/2024 10:28 AM EST 10/30/2024 11:23 AM EST Lisa Ceballos [facility] LAB BLOOD ORDERABLES Final Res ult Performing Organization Address [facility] Co de Phone Number [facility] [address] [place] [phone] * Hepatitis B Core Antibody, Total (10/30/2024 10:28 AM EST) Only the most recent of2 resultswithin the time period is included. Hepatitis B Core Antibody Nonreactive Nonreactive [facility] Blood Venous blood specimen / Unknown 10/30/2024 10:28 AM EST 10/30/2024 11:21 AM EST us Rodrigo Veras CNM LAB BLOOD ORDERABLES Sandra l Result Performing Organization Address City/[facility]/ZIP Co de Phone Number [facility] [address] [place] [address] [phone] * RPR (Monitor) with Reflex to??Titer (10/30/2024 10:28 AM EST) RPR (Monitor) w/Refl Titer NON-REACTI VE NON-REACT ASHLY [facility] Comment:THIS TEST WAS PERFOR MED AT:[facility] [place] [phone] CARRILLO MD Rapid Plasma Reagin Ab Titer TNP [facility] Blood Venous blood specimen / Unknown 10/30/2024 10:28 AM EST 10/30/2024 11:23 AM EST us Lisa Ceballos PAVING FOREMAN LAB BLOOD ORDERABLES Final Res ult Performing Organization Address [facility] Co de Phone Number [facility] [address] [place] [phone] * HIV-1/2 Antigen and Antibodies, Fourth Generation, with Reflexes (10/30/2024 10:28 AM EST) Only the most recent of2 resultswithin the time period is included. HIV AB/AG Nonreactive Nonreactive [facility] Comment:HIV-1 p24 Ag and/or HIV-1/HIV-2 Ab not detected.A test result that is nonreactive does not exclude thepossibility of exposure to or infection with HIV-1 and/orHIV-2. Nonreactive results in this assay for individualswith prior exposure to HIV-1 and/or HIV-2 may be due toantigen and antibody levels that are below the limit ofdetection of this assay.The [employer] Alinity HIV Ag/Ab Combo assay result andsupplemental assay results should be interpreted inconjunction with the patient's clinical presentation,history and other laboratory results. If the results areinconsistent with clinical evidence, additional testing issuggested to confirm the result. Blood Venous blood specimen / Unknown 10/30/2024 10:28 AM EST 10/30/2024 11:23 AM EST Lisa Ceballos PAVING FOREMAN LAB BLOOD ORDERABLES Final Res ult Performing Organization Address [facility]/ZIP Co de Phone Number [facility] [address] [place] [phone] * Hepatitis B Surface Antibody, Qualitative (10/30/2024 10:28 AM EST) Only the most recent of2 resultswithin the time period is included. ~Hepatitis B Surface Antibody REACTIVE Nonreactive [facility] Comment:REACTIVE: > 11.99 mI U/mL Blood Venous blood specimen / Unknown 10/30/2024 10:28 AM EST 10/30/2024 11:21 AM EST Rodrigo Veras [facility] LAB BLOOD ORDERABLES Sandra l Result Performing Organization Address [facility] Co de Phone Number [facility] [address] [place] [phone] * STI testing add on (NG, CT, Trich) (10/30/2024 12:00 AM EST) Trichomonas (NAAT) NOT DETECTED NOT DETECTED [facility] Comment:The analytical perfo rmance characteristics of thisassay have been determined by [employer]. Themodifications have not been cleared or approved bythe FDA. This assay has been validated pursuant to theCLIA regulations and is used for clinical purposes.For additional information, please refer tohttp://education.Gliph/faq/Trichomonastma(This link is being provided for information/educational purposes only.)THIS TEST WAS PERFORMED AT:[facility] [place] [phone] CARRILLO MD CTNG Ref Lab NOT DETECTED NOT DETECTED [facility] NG Ref Lab NOT DETECTED NOT DETECTED [facility] ThinPrep?? vial Cervix uteri structure / Unknown 10/30/2024 10/31/2024 9:10 AM EST Narrative [facility] - 11/03/2024 3:19 PM EST Collection Date: [id number] by: JOHN Torres: Cervix us Rodrigo Veras CNM LAB CYTOLOGY ORDERABLES F inal Result [facility] [address] [place] [phone] * Pap Smear (10/30/2024 12:00 AM EST) Swab Cervix uteri structure / Unknown 10/30/2024 10/31/2024 8:50 AM EST Narrative [facility] - 11/06/2024 3:22 PM EST ----- ------- Name: Te Hager ? Age/Sex: 48/F ? : 1975 Unit#: [id number] ?? Attend Dr: RODRIGO VERAS CNM ?Re10/30/24 ?Status: DEP REF ? Location: HO.HHCLNP ? Disch: ? ----- ------- SPEC : [id number] ?RECD: 10/31/24 ? STATUS: ??SOUT ? REQ NUM: [id number] ? ANGI: 10/30/24 ? SUBM DR: RODRIGO VERAS CNM ? ENTERED: ??10/31/24 ?SP TYPE: Pap Smr ?OTHR DR: ? ORDERED: ??Pap Smear ? Interpretation ?? Satisfactory for evaluation. ?? Negative for intraepithelial lesion or malignancy. ?? No endocervical cells seen. ?? Coccobacilli consistent with shift in vaginal tray. ? HPV High Risk: ??Negative ? HPV Genotyping 16: ??Negative ?? HPV Genotyping 18: ??Negative ?Clinical Information LMP: Unk Previous PAP test: Abnormal Other surgery: Other history: ASCUS HPV positive, negative colpo 2023 ? Material Received ?? ThinPrep-cervical ----- ------- Signed (signature on file) KVNG Schneider (ASCP) 11/06/24 1522 ? ----- ------- ? END OF REPORT ? us Rodrigo Veras [facility] LAB CYTOLOGY ORDERABLES F inal Result [facility] [address] [place] [phone] * (ABNORMAL) Lipid Panel, Standard (12/03/2023 11:10 AM EST) Triglycerides 73 <150 mg/dL [facility] Comment:Desirable Triglyceri de: less than 150 mg/dLBorderline High Triglyceride 150-199 mg/dLHigh Triglyceride: 200-499 mg/dLVery High Triglyceride: greater than or equal to 5OO mg/dL Cholesterol 111 <200 mg/dL [facility] Comment:Desirable Cholestero l: less than 200 mg/dLBorderline High Cholesterol: 200-239 mg/dLHigh Cholesterol: greater than 239 mg/dL LDL Cholesterol Calculated 58 <100 mg/dL [facility] Comment:Desirable LDL: less than 100 mg/dLNear Optimal/Above Optimal LDL: 110- 129 mg/dLBorderline High LDL: 130-159 mg/dLHigh LDL: 160-189 mg/dLVery High LDL: greater than or equal to 190 mg/dL HDL Cholesterol 39(L) >40 mg/dL [facility] Comment:Desirable HDL: great er than 40 mg/dL Note: This HDL assay may give artificially low results in patients with liver disease. Blood Venous blood specimen / Unknown 12/03/2023 11:10 AM EST 12/03/2023 2:34 PM EST Lisa Ceballos P[employer]ING FOREM[employer] LAB BLOOD ORDERABLES Final Res ult Performing Organization Address [facility] Co de Phone Number [facility] [address] [place] [phone] * Albumin, Random Urine W/Creatinine (12/03/2023 11:08 AM EST) Creatinine, Urine 96.71 mg/dL [facility] Microalbumin Urine 6.0 mg/L [facility] Microalbum Creatinine Ratio Ur 6.2 <30 ug/mg cr [facility] Comment:Albumin/Creatinine R atio Reference Ranges: Normal: < 30 ug/mg creatinine Microalbuminuria: 30 - 300 ug/mg creatinineClinical Albuminuria: > 300 ug/mg creatinine Urine 12/03/2023 11:0 8 AM EST 12/03/2023 2:15 PM EST us Lisa Ceballos PAVING FOREM[employer] LAB URINE ORDERABLES Final Res ult Performing Organization Address [facility] Co de Phone Number [facility] [address] [place] [phone] * (ABNORMAL) HPV mRNA E6/E7 w/Reflex to HPV Genotypes 16, 18/45 (11/27/2023 11:00 AM EST) HPV nRNA E6/E7 Detected(A ) Not Detected [facility] Comment:Methodology: Transcr iption-Mediated AmplificationThis assay detects E6/E7 viral messenger RNA (mRNA) from 14high-risk HPV types (16,18,31,33,35,39,45,51,52,56,58,59,66,68).Cervical sources are required for HPV testing.If a vaginal source from a patient who has had atotal hysterectomy with removal of cervix wassubmitted, please contact the testing laboratoryfor alternative testing options.For additional information, please refer tohttp://education.Gliph/faq/FUJ258d7(This link if provided for information/educational purposes only.)THIS TEST WAS PERFORMED AT:[facility] [address] [phone] CARRILLO MD HPV 16 RNA NOT DETECTED NOT DETECTED [facility] HPV 18/45 RNA NOT DETECTED NOT DETECTED [facility] Comment:Methodology: Transcr iption Mediated AmplificationCervical sources are required for HPV testing.If a vaginal source from a patient who has had atotal hysterectomy with removal of cervix wassubmitted, please contact the testing laboratoryfor alternative testing options.THIS TEST WAS PERFORMED AT:[facility] [address] [phone] CARRILLO MD 11/27/2023 11:0 0 AM EST 11/28/2023 11:40 AM EST Lorie Coulter NP LAB CYTOLOGY ORDERABLES Final R esult [facility] [address] [place] [phone] * Cologuard?? colon cancer screening (10/11/2023 2:30 PM EST) Cologuard Result Negative Negative 10/24/19 24 1:16 AM EST [facility] (CLIA #:[id number]) Comment: NEGATIVE TEST RESULT. A negative Cologuard result indicates a low likelihood that a colorectal cancer (CRC) or advanced adenoma (adenomatous polyps with more advanced pre-malignant features) ??is present. The chance that a person with a negative Cologuard test has a colorectal cancer is less than 1 in 1500 (negative predictive value >99.9%) or has an ??advanced adenoma is less than ??5.3% (negative predictive value 94.7%). These data are based on a prospective cross-sectional study of 10,000 individuals at average risk for colorectal cancer who were screened with both Cologuard and colonoscopy. (Wiley Kenney et al, N Engl J Med 2014;370(14):1286- 1297) The normal value (reference range) for this assay is negative. COLOGUARD RE-SCREENING RECOMMENDATION: Periodic colorectal cancer screening is an important part of preventive healthcare for asymptomatic individuals at average risk for colorectal cancer. ??Following a negative Cologuard result, the [place] [employer] Society and U.S. Multi-Society Task Force screening guidelines recommend a Cologuard re-screening interval of 3 years. References: [place] [employer] Guideline for Colorectal Cancer Screening: https://www.cancer.org/cancer/ifewd-ryyjzk-eqpema/wtdxagbtp-iktfqhgev-pttzskl/ac s-rec ommendations.html.; Sacha DK, Luana CR, Delvis LeivaK, Colorectal Cancer Screening: Recommendations for Physicians and Patients from the U.S. Multi-Society Task Force on Colorectal Cancer Screening , Am J Gastroenterology 2017; 112:7386-0813. TEST DESCRIPTION: Composite algorithmic analysis of stool DNA-biomarkers with hemoglobin immunoassay. ?? Quantitative values of individual biomarkers are not reportable and are not associated with individual biomarker result reference ranges. Cologuard is intended for colorectal cancer screening of adults of either sex, 45 years or older, who are at average-risk for colorectal cancer (CRC). Cologuard has been approved for use by the U.S. FDA. The performance of Cologuard was established in a cross sectional study of average-risk adults aged 50-84. Cologuard performance in patients ages 45 to 49 years was estimated by sub-group analysis of near-age groups. Colonoscopies performed for a positive result may find as the most clinically significant lesion: colorectal cancer [4.0%], advanced adenoma (including sessile serrated polyps greater than or equal to 1cm diameter) [20%] or non- advanced adenoma [31%]; or no colorectal neoplasia [45%]. These estimates are derived from a prospective cross-sectional screening study of 10,000 individuals at average risk for colorectal cancer who were screened with both Cologuard and colonoscopy. (Wiley Sol al, N Engl J Med 2014;370(14):9988-5957.) Cologuard may produce a false negative or false positive result (no colorectal cancer or precancerous polyp present at colonoscopy follow up). A negative Cologuard test result does not guarantee the absence of CRC or advanced adenoma (pre-cancer). The current Cologuard screening interval is every 3 years. ([place] [employer] Society and U.S. Multi-Society Task Force). Cologuard performance data in a 10,000 patient pivotal study using colonoscopy as the reference method can be accessed at the following location: www.[employer]/results. Additional description of the Cologuard test process, warnings and precautions can be found at www.CardeeoogEpay Systemsrd.com. Stool specimen (specimen) 10/11/2023 2:30 PM EST 10/13/2023 12:46 AM EST Lisa Ceballos [facility] LAB MOLECULAR DIAGNOSTICS SUKI POWERS Final Result [facility] (CLIA #:[id number]) [address] [place] [address], from Last 3 Months or Most Recently Relevant to Health Maintenance Insurance [facility] C[employer] [place] Care Teams Electrician Third Relationship Specialty Start Date End Date Lisa Ceballos FNP [address] [place] [phone] PCP - General Family Medicine 10/19/22 Jose Albarado Community Health Worker 05/22/24 Loi Fitzpatrick Cable RespoolerSenior Manager 11/19/24
--- OUTSIDE RECORDS SUMMARY | 2024-12-12 12:39 | XMS_ITS | Encounter Summary ---
Author Organization [employer] Address [address] [facility] [address]t [place] [address] Care Team Providers Care Sales Development Specialist Name Role Phone Lisa Ceballos Primary Care Provider [phone] Jose Albarado Unavailable Unavailable Reason for Visit * Reason Onset Date Comments Appointment Request 11/12/2024 Encounter Details Date Type Department Care Team ([facility] Contact Info) Description 11/12/2024 Telephone [facility] [address] [place] [address] Lisa Ceballos FNP [address] [place] [address] Appointment Request Social History Tobacco Use Types Packs/Day Years [...] encounter Miscellaneous Notes * Telephone Encounter - Christina Blank RN - 11/12/2024 1:05 PM EST TC to pt in regards to my chart message requesting yearly diabetic foot exam. Pt has appt on 12/12/24 for follow up. Pt agrees to keep appt. Foot exam needed added into appt notes. documented in this encounter Plan of Treatment Upcoming Encounters Date Type Department Care Team (Late st Contact Info) Description 12/15/2024 10:00 AM EST Clinical Support [facility] [address] [place] [address] documented as of this encounter Visit Diagnoses Not on filedocumented in this encounter Additional Health Concerns Assessment Noted Time PHQ-9 Depression Total Score: 17 024 9:31 AM EDT documented as of this encounter Care Teams Sales Development Specialist Relationship Specialty Start Date End Date Lisa Ceballos FNP [address] [place] [address] PCP - General Family Medicine 10/19/22 Jose Albarado Community Health Worker 05/22/24 documented as of this encounter
--- OUTSIDE RECORDS SUMMARY | 2024-12-12 12:39 | XMS_ITS | Encounter Summary ---
Author Organization [facility] Address [address] [place] [id number] Care Team Providers Care Cpas Name Role Phone Pcp, No Primary Care Provider Unavailabl e Encounter Details Date Type Department Care Team (Late st Contact Info) Description 12/02/2024 Scanned Document [facility] Department of Physiatry [facility] [address] [place] [phone] Luda Nielson MD [address] [place] [address] Social History Tobacco Use Types Packs/Day Years Used Date Smoking Tobacco: Never Assessed Sex and Gender Information Value Date Recorded Sex Assigned at Not on file Gender Identity Not on file Sexual Orientation Not on file documented as of this encounter Plan of Treatment Upcoming Encounters Date Type Department Care Team (Late st Contact Info) Description 12/22/2024 2:15 PM EST Procedure visit [facility] Department of Physiatry [facility] [address] [place] [phone] Luda Nielson MD [address] [place] [address] documented as of this encounter Visit Diagnoses Not on filedocumented in this encounter Care Teams Cpas Relationship Specialty Start Date End Date Pcp, No PCP - General General Medicine 05/24/20 documented as of this encounter
[2024-12-12 14:35] LABS: Alanine Aminotransferase 58 U/L (0-31); Alkaline Phosphatase 186 U/L (39-117); Anion Gap 9 (12-20); Aspartate Amino Transferase 44 U/L (5-31); Bilirubin Total 0.5 mg/dL (0.0-1.0); Blood Urea Nitrogen 20 mg/dL (9-16); Calcium 8.8 mg/dL (8.4-10.2); Carbon Dioxide 27 mmol/L (22-29); Chloride 106 mmol/L (96-108); Cholesterol 110 mg/dL (<200); Estimated Glomerular Filt Rate > 60; Glucose Random 206 mg/dL (60-115); HDL Cholesterol 37 mg/dL (>40); LDL Cholesterol Calculated 58 mg/dL (<100); Potassium 4.3 mmol/L (3.3-5.1); Sodium 138 mmol/L (135-145); Total Protein 7.6 g/dL (6.5-8.0); Triglycerides 78 mg/dL (<150)
[2024-12-12 14:36] LABS: TSH reflex Free T4 3.39 uIU/mL (0.32-4.0)
[2024-12-12 14:46] LABS: Creatinine Urine 186.13 mg/dL; Microalbum/Creatinine Ratio Ur 7.5 ug/mg cr (<30)
== END 2024-12-12 11:35 | disposition home or self-care (01) ==
LOC: HO.CHCLDS 11:34
PROVIDERS: Visit Provider Registered Nurse
DX: E11.9 Type 2 diabetes mellitus without complications (principal)
CPT/HCPCS: 36415; 80053; 80061; 82043; 82570; 84443

== ENCOUNTER 2025-01-09 13:05 | Outpatient (REF) | payer MEDICAID, SELFPAY ==
[2025-01-09 15:01] LABS: Alanine Aminotransferase 43 U/L (0-31); Albumin Level 3.9 g/dL (3.5-5.0); Alkaline Phosphatase 184 U/L (39-117); Anion Gap 8 (12-20); Aspartate Amino Transferase 34 U/L (5-31); Bilirubin Direct 0.2 mg/dL (0.0-0.5); Bilirubin Total 0.3 mg/dL (0.0-1.0); Blood Urea Nitrogen 20 mg/dL (9-16); Calcium 8.5 mg/dL (8.4-10.2); Carbon Dioxide 27 mmol/L (22-29); Chloride 107 mmol/L (96-108); Estimated Glomerular Filt Rate > 60; Glucose Random 149 mg/dL (60-115); Potassium 4.1 mmol/L (3.3-5.1); Sodium 138 mmol/L (135-145); Total Protein 7.4 g/dL (6.5-8.0)
== END 2025-01-09 13:06 | disposition home or self-care (01) ==
LOC: HO.CHCLDS 13:05
PROVIDERS: Visit Provider Registered Nurse
DX: E11.9 Type 2 diabetes mellitus without complications (principal); R79.89 Other specified abnormal findings of blood chemistry
CPT/HCPCS: 36415; 80053; 82248

== ENCOUNTER 2025-03-17 09:11 | Outpatient (REF) | payer MEDICAID, SELFPAY ==
--- OUTSIDE RECORDS SUMMARY | 2025-03-17 09:42 | XMS_ITS | Encounter Summary ---
Author Organization [employer] Address [address] [facility] [address] [place] [address] Care Team Providers Care Tape Stringer Name Role Phone Lisa Ceballos Primary Care Provider [phone] Jose Albarado Unavailable Uma Goldstein PharmD Unavailable [phone] Uma Goldstein PharmD Unavailable [phone] Reason for Visit * Reason Comments Med Refill Encounter Details Date Type Department Care Team (Late st Contact Info) Description 08/20/2023 Refill [facility] [address] [place] [address] Lisa Ceballos FNP [address] [place], [place] [phone] Type 2 diabetes mellitus without complication, without long-term current use of insulin ([facility]) Social History Tobacco Use Types Packs/Day Years [...] with others, in a hotel, in a senior living, living outside on the street, on a [...] Care Team (Late st Contact Info) Description 04/13/2025 10:00 AM EDT Office Visit [facility] [address] [place] [address] Lisa Ceballos FNP [address] [place] [address] documented as of this encounter Visit Diagnoses Diagnosis Type 2 diabetes mellitus without complication, without long-term current use of insulin ([facility]) documented in this encounter Additional Health Concerns Assessment Noted Time PHQ-9 Depression Total Score: 8 02/20/20 23 2:09 PM EDT documented as of this encounter Care Teams Tape Stringer Relationship Specialty Start Date End Date Lisa Ceballos FNP [address] [place] [phone] PCP - General Family Medicine 10/19/22 Jose Albarado Community Health Worker 05/22/24 Uma Goldstein, PharmD [address] [place] [address] Pharmacist Internal Medicine 01/05/25 Uma Goldstein, [place] [address] [place] [address] Pharmacist Internal Medicine 01/05/25 Loi Fitzpatrick Sock KnitterMri Manager 11/19/24 documented as of this encounter
[2025-03-17 15:01] LABS: Alanine Aminotransferase 41 U/L (0-31); Albumin Level 4.2 g/dL (3.5-5.0); Alkaline Phosphatase 172 U/L (39-117); Aspartate Amino Transferase 38 U/L (5-31); Bilirubin Direct 0.4 mg/dL (0.0-0.5); Bilirubin Total 0.8 mg/dL (0.0-1.0); Total Protein 7.2 g/dL (6.5-8.0)
== END 2025-03-17 09:12 | disposition home or self-care (01) ==
LOC: HO.CHCLDS 09:11
PROVIDERS: Visit Provider Registered Nurse
DX: E11.9 Type 2 diabetes mellitus without complications (principal)
CPT/HCPCS: 36415; 80076